=== PATIENT | male | born 1940 | race Caucasian/White ===

== ENCOUNTER 2018-05-17 20:29 | Emergency (ER) | payer OTHER ==
[~2018-05-17] VITALS: Ht 172.7 cm; Wt 113.4 kg
[~2018-05-17 20:29] MED LIST: LISI10TA11 PO; LOVA20TA2 PO; METF500T PO; MIC5 PO; TAMS0.4C96 PO; TRAM50TA1 PO; VIC PO
[2018-05-17 20:33] VITALS: BP 118/57
--- NOTE | 2018-05-17 20:42 | NUR ---
PT AMBULATED TO BED 11 WITH VSS. ACCOMPANIED BY AND DAUGHTER.
[2018-05-17] MEDS ORDERED: NACL 0.9% 500 ML IV SCH (20:45)
[2018-05-17] MEDS ORDERED: NACL 0.9% 500 ML IV ONE (20:45)
--- NOTE | 2018-05-17 20:48 | NUR ---
TO ER BED 11
--- NOTE | 2018-05-17 20:50 | NUR ---
77/M CAME IN WITH FAMILY, C/O DIZZINESS AND WEAKNESS AFTER BLOOD DRAW THIS MORNING. PT STATED THAT HE WENT HOME, LAID DOWN AND STARTED FEELING SYMPTOMS. PT REPORTS SUBJECTIVE FEVER, PT TOOK ADVIL 12 HRS AGO. PT REPORTS INTERMITTENT HEADACHE, BODY ACHES AND LOWER BACK PAIN, DENIES PAIN AT THIS TIME. PT DENIES CHEST PAIN, SOB, N/V/D, DYSURIA. AOX4, GCS 15. LUNG SOUNDS CLEAR BL. ABD SOFT ROUND NONTENDER. BLE EDEMA PITTING +1 NOTED, NOTED SLIGHT LLE DEFORMITY SINCE 30 YEARS AGO PER PT. HX HTN, DM. ER MD MADE AWARE.
[2018-05-17 21:09] LABS: APPEARANCE,URINE CLEAR (CLEAR); BILIRUBIN,URINE NEGATIVE (NEGATIVE); BLOOD, URINE TRACE-I (NEGATIVE); COLOR,URINE YELLOW (YELLOW); LEUKOCYTE ESTERASE ,URINE TRACE (NEGATIVE); NITRITE, URINE NEGATIVE (NEGATIVE); PH,URINE 7.5 (5.0-9.0); UGLUCOSE NEGATIVE (NEGATIVE)
[2018-05-17 21:14] LABS: BASOPHILS % (AUTO) 0.2 % (0.0-2.0); EOSINOPHILS % (AUTO) 0.1 % (0.0-4.0); HEMATOCRIT 37.4 % (36-52); HEMOGLOBIN 12.4 g/dL (12.0-18.0); LYMPHOCYTES # (AUTO) 0.5 K/uL (2.0-11.5); MEAN CORPUSCULAR HEMOGLOBIN 31 pg (27-31); MEAN CORPUSCULAR HGB CONC 33 g/dL (33-37); MEAN CORPUSCULAR VOLUME 94.2 fL (80-94); MONOCYTES # (AUTO) 0.8 K/uL (0.8-1.0); MONOCYTES % (AUTO) 3.9 % (1.7-9.3); NEUTROPHILS # (AUTO) 18.7 K/uL (1.8-7.7); NEUTROPHILS % (AUTO) 93.3 % (42.2-75.2); PLATELET COUNT (AUTO) 132 K/uL (140-450); RED BLOOD CELL COUNT(AUTO) 3.97 MIL/uL (4.20-6.10); RED CELL DISTRIBUTION WIDTH 13.3 % (11.6-13.7)
[2018-05-17 21:20] LABS: ANION GAP 11.7 (8-16); CARBON DIOXIDE 26.4 mmol/L (21-32); CHLORIDE 100 mmol/L (98-107); CREATININE 1.1 mg/dL (0.7-1.3); GLUCOSE 158 mg/dL (74-106); POTASSIUM 4.1 mmol/L (3.5-5.1); SODIUM SERUM 134 mmol/L (136-145); UREA NITROGEN, BLOOD 16 mg/dL (7-18)
[2018-05-17 21:26] LABS: LYMPHOCYTES % (AUTO) 2.5 % (20.5-51.1)
[2018-05-17 21:27] LABS: ALBUMIN 3.6 g/dL (3.4-5.0); ASPARTATE AMINOTRANSFERASE 16 U/L (15-37); TOTAL BILIRUBIN 1.5 mg/dL (0.0-1.0)
[2018-05-17 21:27] LABS: RBC,URINE 0-5 (RARE) /HPF (0-5); WBC,URINE 0-5 (RARE) /HPF (0-5)
[2018-05-17 21:28] LABS: PROTHROMBIN TIME 10.5 secs (10.8-13.4)
[2018-05-17] MEDS ORDERED: ACETAMINOPHEN 325 MG TAB PO ONE (22:00)
--- NOTE | 2018-05-17 22:00 | NUR ---
PT RESTING IN BED, REPORTS 3/10 L SHOULDER PAIN, BODYACHES AND CHILLS. TEMP 100.4 ORAL AT THIS TIME. COOLING MEASURES ENSURED. TYLENOL PO ADMINISTERED PER VERBAL ORDER. ALL NEEDS MET AT THIS TIME.
[2018-05-17] MEDS ORDERED: NACL 0.9% IV ONE (22:30)
[2018-05-17] MEDS ORDERED: PIPERACILLIN/TAZOBACTAM 3.375 GM in DEXTROSE 5% 50 ML IV ONE (22:30)
[2018-05-17] MEDS ORDERED: PIPERACILLIN/TAZOBACTAM 3.375 GM VIAL IV ONE (22:53)
--- NOTE | 2018-05-17 23:30 | NUR ---
PT RESTING COMFORTABLY, VSS, TEMP 99.5 AT THIS TIME. ALL NEEDS MET.
--- NOTE | 2018-05-18 00:40 | NUR ---
PT RESTING COMFORTABLY, VSS, TEMP 99.8 AT THIS TIME, COOLING MEASURES ENSURED. ALL NEEDS MET.
--- NOTE | 2018-05-18 02:59 | NUR ---
PT SITTING COMFORTABLY IN BED, RR EVEN AND UNLABORED, VSS. PER UNION LABORER, AWAITING BED PLACEMENT CALL BACK FROM [facility].
--- NOTE | 2018-05-18 03:19 | NUR ---
Patient to be transferred to [facility]. Is being transferred due to LEUKOCYTOSIS, SEPSIS, FEVER. Receiving facility has accepting physician DR. MOFFETT and available space. ER physician has signed transfer form. Patient or responsible democrat has agreed to transfer and signed form. Patient belongings inventoried and will be sent with patient. Copy of nursing notes, lab reports, EKG, Physicians Orders and X-rays to be sent with patient. Report called to NATALYA ONTIVEROS at receiving facility. [facility], [facility] ambulance service has been called for transfer. ETA is 45MINS TO 1HR.
[2018-05-18 04:27] VITALS: BP 107/41
--- NOTE | 2018-05-18 04:27 | NUR ---
PT PICKED UP BY [facility]ORT AT THIS TIME, VSS, CONDITION STABLE. ALL BELONGINGS AND PAPERWORK SENT WITH PT.
--- NOTE | 2018-05-20 13:17 | NUR ---
PATIENT WAS TRANSFERED OUT TO [facility] NO FOLLOW UP INDICATED
== END 2018-05-18 04:27 | disposition short-term general hospital (02) ==
LOC: MED 20:29
DX: A41.9 Sepsis, unspecified organism (principal); D72.829 Elevated white blood cell count, unspecified; E11.9 Type 2 diabetes mellitus without complications; I10 Essential (primary) hypertension; Z79.899 Other long term (current) drug therapy
CPT/HCPCS: 36415; 71045; 80053; 81001; 83605; 83880; 84484; 85025; 85610; 85730; 87040; 87086; 87186; 93005; 96361; 96365; 99285; J2543; J7030

== ENCOUNTER 2019-11-11 08:58 | Emergency (ER) | payer OTHER ==
[~2019-11-11] VITALS: Ht 172.7 cm; Wt 113.4 kg
[2019-11-11 09:00] VITALS: BP 155/79
--- NOTE | 2019-11-11 09:00 | NUR ---
TO BED # 02 AMBULATORY
[2019-11-11] MEDS ORDERED: KETOROLAC 60 MG/2 ML VIAL IM ONE (09:50)
--- NOTE | 2019-11-11 09:50 | NUR ---
DONE THE EXAM BEDSIDE.
--- NOTE | 2019-11-11 09:55 | NUR ---
TORADOL GIVEN IM. XRAY IS BEDSIDE
[2019-11-11 12:31] VITALS: BP 154/75
--- NOTE | 2019-11-11 12:32 | NUR ---
Patient discharged with v/s stable. Written and verbal after care instructions given and explained. Patient alert, oriented and verbalized understanding of instructions. with to car. All questions addressed prior to discharge. ID band removed. Patient advised to follow up with PMD. Rx of given. Patient educated on indication of medication including possible reaction and side effects. Opportunity to ask questions provided and answered.
== END 2019-11-11 12:32 | disposition home or self-care (01) ==
LOC: MED 08:58
DX: M54.42 Lumbago with sciatica, left side (principal); E11.9 Type 2 diabetes mellitus without complications; I10 Essential (primary) hypertension; Z79.84 Long term (current) use of oral hypoglycemic drugs; Z79.899 Other long term (current) drug therapy
CPT/HCPCS: 72131; 73610; 93971; 96372; 99285; J1885; Q0092

== ENCOUNTER 2021-02-06 10:40 | Emergency (ER) | payer OTHER ==
[~2021-02-06] VITALS: Ht 172.7 cm; Wt 113.4 kg
[~2021-02-06 10:40] MED LIST changes: +GLYB-200 PO; +LISI-486 PO; -LISI10TA11 PO; -MIC5 PO
[2021-02-06 10:48] VITALS: BP 183/88
--- NOTE | 2021-02-06 10:53 | NUR ---
Pt ambulated to ER bed 6 with a steady gait.
--- NOTE | 2021-02-06 10:56 | NUR ---
RN at pt bedside for evaluation.
--- NOTE | 2021-02-06 11:05 | NUR ---
80 Y/O M BIB SELF FROM HOME, PATIENT PRESENTS TO ED WITH HEADACHE AND HEAD PAIN FROM MECHANICAL FALL ON 02/04/21. PT STATES HE FEEL BACKWARDS, DENIES ANY LOC OR BLEEDING. DENIES N/V/D; SKIN IS PINK/WARM/DRY, NO SWELLING, REDNESS OR ABRASIONS ON POSTERIOR HEAD; AAOX4 WITH EVEN AND STEADY GAIT WITH CANE ON L SIDE; LUNGS CLEAR BL; HR EVEN AND REGULAR; PT DENIES ANY FEVER, CP, SOB, OR COUGH AT THIS TIME; PATIENT STATES PAIN OF 2/10 AT THIS TIME; VSS; PATIENT POSITIONED FOR COMFORT; HOB ELEVATED; BEDRAILS UP X2; BED DOWN. ER MD MADE AWARE OF PT STATUS. PMH: DIABETES NKA MED: ADVIL (2 TAB PO THIS AM)
--- NOTE | 2021-02-06 11:08 | NUR ---
Dr. Salcido at pt bedside for further evaluation.
[2021-02-06] MEDS ORDERED: ACETAMINOPHEN EXTRA STRENGTH 500 MG TAB PO ONE (11:20)
--- NOTE | 2021-02-06 11:21 | NUR ---
technician assistant at pt bedside.
--- NOTE | 2021-02-06 12:39 | NUR ---
Gave report to NATALYA Mendez at [facility].
--- NOTE | 2021-02-06 13:05 | NUR ---
[facility] at bedside to transport the patient to [facility] ER.
[2021-02-06 13:13] VITALS: BP 155/73
--- NOTE | 2021-02-06 13:17 | NUR ---
CONTACTED DAUGHTER SNEHA ROSARIO, INFORMED HER THAT HE IS TRANSFERRED TO [facility] FOR MRI AND HIGHER LEVEL OF CARE.
== END 2021-02-06 13:05 | disposition short-term general hospital (02) ==
LOC: MED 10:40
DX: S00.93XA Contusion of unspecified part of head, initial encounter (principal); E11.9 Type 2 diabetes mellitus without complications; I10 Essential (primary) hypertension; Z79.899 Other long term (current) drug therapy; W22.8XXA Striking against or struck by other objects, initial encounter; Y93.89 Activity, other specified; Y92.89 Other specified places as the place of occurrence of the external cause; Y99.8 Other external cause status; Z20.822 Contact with and (suspected) exposure to COVID-19
CPT/HCPCS: 70450; 73590; 99291

== ENCOUNTER 2021-06-04 14:10 | Observation (INO) | payer OTHER, SELFPAY ==
[~2021-06-04] VITALS: Ht 172.7 cm; Wt 108.9 kg
[2021-06-04 14:45] VITALS: BP 86/43
--- NOTE | 2021-06-04 15:02 | NUR ---
DR. BRIGHT BEDSIDE EVALUATING PT
--- NOTE | 2021-06-04 15:26 | NUR ---
LAB BEDSIDE OBTAINING BLOOD WORK
--- NOTE | 2021-06-04 15:36 | NUR ---
80 Y MALE WITH C/O SOB AND LIGHTHEADNESS. PT STATED HE STARTED TO FEEL LIKE HE COULDNT CATCH HIS BREATH FOR ABOUT 2 MINUTES AND STARTED TO FEEL LIGHTHEADED. DENIES ANY CHEST PAIN AT THIS TIME. UPON ASSESSMENT BREATH SOUNDS CLEAR BILATERALLY. PT ON RA AND SATING 97% HX-DM, HIGH CHOL NKA
[2021-06-04 15:55] LABS: BASOPHILS # (AUTO) 0.1 K/uL (0.00-0.22); BASOPHILS % (AUTO) 0.7 % (0.0-2.0); EOSINOPHILS # (AUTO) 0.3 K/uL (0-0.4); HEMATOCRIT 34.3 % (36-52); HEMOGLOBIN 11.6 g/dL (12.0-18.0); LYMPHOCYTES # (AUTO) 1.3 K/uL (2.0-11.5); LYMPHOCYTES % (AUTO) 15.1 % (20.5-51.1); MEAN CORPUSCULAR HEMOGLOBIN 32 pg (27-31); MEAN CORPUSCULAR HGB CONC 34 g/dL (33-37); MEAN CORPUSCULAR VOLUME 94.3 fL (80-94); MONOCYTES # (AUTO) 0.6 K/uL (0.8-1.0); MONOCYTES % (AUTO) 7.1 % (1.7-9.3); NEUTROPHILS # (AUTO) 6.4 K/uL (1.8-7.7); NEUTROPHILS % (AUTO) 74.1 % (42.2-75.2); PLATELET COUNT (AUTO) 151 K/uL (140-450); RED BLOOD CELL COUNT(AUTO) 3.63 MIL/uL (4.20-6.10); RED CELL DISTRIBUTION WIDTH 13.9 % (11.6-13.7); WHITE BLOOD COUNT (AUTO) 8.7 K/uL (4.8-10.8)
[2021-06-04] MEDS ORDERED: NACL 0.9% 1,000 ML IV ONE (17:05)
--- NOTE | 2021-06-04 17:15 | NUR ---
PT AMBULATED TO RESTROOM. GAIT STEADY
--- NOTE | 2021-06-04 18:27 | NUR ---
SPOKE WITH PT IN REGARDS TO HOME MEDICATIONS. PT CALLED HIS AND IS GOING TO HAVE HIS BRING HIS MEDICATIONS TO BE ENTERED INTO THE SYSTEM
[2021-06-04] MEDS ORDERED: DEXTROSE 50% 50 ML SYR IVP PRN (18:40)
[2021-06-04] MEDS ORDERED: ACETAMINOPHEN 325 MG TAB PO PRN (18:40)
[2021-06-04] MEDS ORDERED: ONDANSETRON 4 MG/2 ML VIAL IVP PRN (18:40)
[2021-06-04] MEDS ORDERED: ALBUTEROL 0.083% 2.5 MG/3 ML NEBU INH PRN (18:40)
[2021-06-04] MEDS ORDERED: traMADol 50 MG TAB PO PRN (18:45)
[2021-06-04 18:48] LABS: ALBUMIN 3.5 g/dL (3.4-5.0); ANION GAP 18.6 (8-16); ASPARTATE AMINOTRANSFERASE 17 U/L (15-37); CARBON DIOXIDE 24.5 mmol/L (21-32); CHLORIDE 104 mmol/L (98-107); CREATININE 1.3 mg/dL (0.6-1.3); GLUCOSE 96 mg/dL (74-106); POTASSIUM 4.1 mmol/L (3.5-5.1); SODIUM SERUM 143 mmol/L (136-145); TOTAL BILIRUBIN 0.8 mg/dL (0.0-1.0); UREA NITROGEN, BLOOD 28 mg/dL (7-18)
[2021-06-04] MEDS ORDERED: FUROSEMIDE 20 MG/2 ML VIAL IVP SCH (19:00)
[2021-06-04] MEDS ORDERED: CILO100T PO (19:05)
[2021-06-04] MEDS ORDERED: POTA10TE30 PO (19:05)
[2021-06-04] MEDS ORDERED: GLIP10TE PO (19:05)
[2021-06-04] MEDS ORDERED: FURO-570 PO (19:05)
[2021-06-04] MEDS ORDERED: OMEP40EC24 PO (19:05)
[2021-06-04] MEDS ORDERED: MIRA25TE PO (19:05)
[2021-06-04 19:10] LABS: CREATINE KINASE MB 1.3 ng/mL (0-3.6)
--- NOTE | 2021-06-04 19:40 | NUR ---
US AT BEDSIDE.
[2021-06-04] MEDS: BLOOD GLUCOSE MONITORING 1 DEV DEV FS SCH (21:15)
--- NOTE | 2021-06-04 21:15 | NUR ---
LAB AT BEDSIDE
--- NOTE | 2021-06-05 06:28 | NUR ---
PT SLEPT FROM 0000 UNTIL NOW. PT GOT UP FREQUENTLY TO USE THE RR, AMBULATED WITH STEADY GAIT AND BACK TO BED OR WOULD SIT IN CHAIR. PT REMAINED IN STABLE CONDITION. BED LOCKED IN LOWEST POISITION, SIDE RAILS X1.
[2021-06-05 06:48] LABS: BASOPHILS # (AUTO) 0.1 K/uL (0.00-0.22); BASOPHILS % (AUTO) 0.8 % (0.0-2.0); EOSINOPHILS # (AUTO) 0.3 K/uL (0-0.4); EOSINOPHILS % (AUTO) 4.4 % (0.0-4.0); HEMATOCRIT 36.6 % (36-52); HEMOGLOBIN 12.2 g/dL (12.0-18.0); LYMPHOCYTES # (AUTO) 1.6 K/uL (2.0-11.5); LYMPHOCYTES % (AUTO) 21.4 % (20.5-51.1); MEAN CORPUSCULAR HEMOGLOBIN 32 pg (27-31); MEAN CORPUSCULAR HGB CONC 34 g/dL (33-37); MEAN CORPUSCULAR VOLUME 95.8 fL (80-94); MONOCYTES # (AUTO) 0.7 K/uL (0.8-1.0); MONOCYTES % (AUTO) 8.8 % (1.7-9.3); NEUTROPHILS # (AUTO) 4.8 K/uL (1.8-7.7); NEUTROPHILS % (AUTO) 64.6 % (42.2-75.2); PLATELET COUNT (AUTO) 162 K/uL (140-450); RED BLOOD CELL COUNT(AUTO) 3.82 MIL/uL (4.20-6.10); RED CELL DISTRIBUTION WIDTH 13.8 % (11.6-13.7); WHITE BLOOD COUNT (AUTO) 7.4 K/uL (4.8-10.8)
--- NOTE | 2021-06-05 07:30 | NUR ---
REPORT GIVEN TO NATALYA DUARTE. TRANSFER OF CARE AT THIS TIME.
[2021-06-05] MEDS: BLOOD GLUCOSE MONITORING 1 DEV DEV FS SCH ×4 (07:41→20:40)
[2021-06-05] MEDS: TAMSULOSIN 0.4 MG CAP PO SCH (08:27)
[2021-06-05] MEDS: ASPIRIN 81 MG TAB.CHEW PO SCH (08:27)
[2021-06-05] MEDS: ENOXAPARIN 40 MG/0.4 ML SYR SUBQ SCH (08:28)
--- NOTE | 2021-06-05 08:58 | NUR ---
Patient will be admitted to care of DR. RICHARDS. Admited to TELE. Will go to room 111A. Belongings list completed. Report to NATALYA WADSWORTH.
[2021-06-05 09:30] VITALS: BP 141/72
--- NOTE | 2021-06-05 09:30 | NUR ---
PT ARRIVED TO UNIT VIA GURNEY. PT AMBULATED TO THE BED. GAIT WAS STEADY. AWAKE AND ALERT, A&OX4. ON 2L O2 NC WITH BREATHING UNLABORED. O2 SAT IS 99%. ON TELE MONITORING, SR. SWELLING ON THE LEFT LOWER EXTREMITY NOTED. SKIN IS WARM, DRY, AND INTACT. IV IS IN THE RIGHT FOREARM 22 GAUGE SALINE LOCKED. PT IS STABLE. PLAN OF CARE DISCUSSED WITH ER NURSE.
--- NOTE | 2021-06-05 09:30 | NUR ---
UPON ADMISSION PT HAD 856 DOLLARS IN WALLET. PT STATED HE WANTED TO KEEP IT ON HIM AND NOT PLACE IN SAFE. PT KEPT WALLET IN PANTS.
--- NOTE | 2021-06-05 11:30 | NUR ---
PT'S BS READING IS 147. NO INSULIN COVERAGE NEEDED PER SLIDING SCALE.
[2021-06-05 12:00] VITALS: BP 138/64
--- NOTE | 2021-06-05 12:00 | NUR ---
IS AT BEDSIDE VISITING PT. NO DISTRESS NOTED AT THIS TIME. PT IS SITTING UP AT CHAIR. BELONGINGS ARE WITHIN REACH.
--- NOTE | 2021-06-05 13:23 | NUR ---
PT WAS PLACED ON RA. O2 SAT WAS MONITORED AND O2 SAT HAS BEEN STABLE, 96%. O2 NC WITH 2L NO LONGER NEEDED. BREATHING IS UNLABORED.
--- NOTE | 2021-06-05 13:27 | NUR ---
MEDICATIONS DROPPED OFF AT PHARMACY FROM HOME; LOVASTATIN AND MIRAREGRON. PT AGREED TO THIS AND PROVIDED MEDICATION.
[2021-06-05 13:50] LABS: ALBUMIN 3.7 g/dL (3.4-5.0); ANION GAP 19.4 (8-16); ASPARTATE AMINOTRANSFERASE 20 U/L (15-37); CARBON DIOXIDE 24.5 mmol/L (21-32); CHLORIDE 105 mmol/L (98-107); CREATININE 1.1 mg/dL (0.6-1.3); GLUCOSE 75 mg/dL (74-106); MAGNESIUM 1.3 mg/dL (1.8-2.4); POTASSIUM 3.9 mmol/L (3.5-5.1); SODIUM SERUM 145 mmol/L (136-145); TOTAL BILIRUBIN 0.9 mg/dL (0.0-1.0); UREA NITROGEN, BLOOD 26 mg/dL (7-18)
--- NOTE | 2021-06-05 15:41 | NUR ---
PT IS STABLE. PT IS SITTING UP IN BED, WATCHING TV. NO RESPIRATORY DISTRESS NOTED. PT DENIES SOB. WILL CONTINUE TO MONITOR.
[2021-06-05 16:00] VITALS: BP 117/72
--- NOTE | 2021-06-05 16:57 | NUR ---
PATIENT HAS BEEN SCREENED AND CATEGORIZED LOW NUTRITION RISK. PATIENT WILL BE SEEN WITHIN 7 DAYS OF ADMISSION. 06/11/[address]
--- NOTE | 2021-06-05 17:45 | NUR ---
BS READING IS 132. NO INSULIN COVERAGE NEEDED PER SLIDING SCALE.
--- NOTE | 2021-06-05 17:55 | NUR ---
PT IS SITTING UP IN BED WATCHING TV. PT DENIES SOB OR CHEST PAIN. ON RA WITH BREATHING UNLABORED. PT AMBULATED TO THE RESTROOM INDEPENDENTLY. PT IS STABLE AT THIS TIME.
--- NOTE | 2021-06-05 19:15 | NUR ---
ENDORSED PT TO PROGRAM THERAPIST NURSE FOR CONTINUITY OF CARE. PT IS STABLE AT THIS TIME. PLAN OF CARE DISCUSSED.
--- NOTE | 2021-06-05 19:34 | NUR ---
RECEIVED REPORT FROM DAYSPAFT NURSE FOR CONTINUITY OF CARE.
[2021-06-05 19:51] LABS: CREATINE KINASE MB 1.3 ng/mL (0-3.6)
[2021-06-05 20:00] VITALS: BP 118/70
[2021-06-05] MEDS: INSULIN LISPRO SLIDING SCALE 100 UNITS/ML VIAL SUBQ PRN (20:38)
--- NOTE | 2021-06-05 20:41 | NUR ---
SCHEDULED BS CHECKED, IT WAS 157. GAVE 2 UNITS OF INSULIN FOR COVERAGE.
[2021-06-06] VITALS: BP 125/67
--- NOTE | 2021-06-06 | NUR ---
PATIENT ASLEEP, ON ROOM AIR, NO SIGNS OF DISTRESS. SAFETY MEASURES IMPLEMENTED. CALL LIGHT WITHIN REACH.
[2021-06-06 04:00] VITALS: BP 131/79
[2021-06-06] MEDS: BLOOD GLUCOSE MONITORING 1 DEV DEV FS SCH ×2 (06:56→11:37)
--- NOTE | 2021-06-06 06:57 | NUR ---
CHECKED SCHEDULED BS, IT WAS 114. NO INSULIN COVERAGE GIVEN
--- NOTE | 2021-06-06 07:23 | NUR ---
ENDORSE PT TO DAYSHIFT NURSE FOR CONTINUITY OF CARE.
--- NOTE | 2021-06-06 07:25 | NUR ---
Received report from night time nanny RN. Patient awake and alert sitting on chair on side of bed. Will continue to monitor patient.
[2021-06-06 07:27] LABS: BASOPHILS % (AUTO) 0.6 % (0.0-2.0); EOSINOPHILS # (AUTO) 0.4 K/uL (0-0.4); EOSINOPHILS % (AUTO) 5.2 % (0.0-4.0); HEMATOCRIT 35.9 % (36-52); HEMOGLOBIN 12.3 g/dL (12.0-18.0); LYMPHOCYTES # (AUTO) 1.4 K/uL (2.0-11.5); MEAN CORPUSCULAR HEMOGLOBIN 32 pg (27-31); MEAN CORPUSCULAR HGB CONC 34 g/dL (33-37); MEAN CORPUSCULAR VOLUME 94.3 fL (80-94); MONOCYTES # (AUTO) 0.6 K/uL (0.8-1.0); NEUTROPHILS # (AUTO) 4.5 K/uL (1.8-7.7); NEUTROPHILS % (AUTO) 65.2 % (42.2-75.2); PLATELET COUNT (AUTO) 158 K/uL (140-450); RED CELL DISTRIBUTION WIDTH 13.8 % (11.6-13.7); WHITE BLOOD COUNT (AUTO) 6.9 K/uL (4.8-10.8)
[2021-06-06 07:46] LABS: ANION GAP 12.3 (8-16); CARBON DIOXIDE 30.8 mmol/L (21-32); CHLORIDE 103 mmol/L (98-107); CREATININE 0.9 mg/dL (0.6-1.3); GLUCOSE 129 mg/dL (74-106); POTASSIUM 4.1 mmol/L (3.5-5.1); SODIUM SERUM 142 mmol/L (136-145); UREA NITROGEN, BLOOD 19 mg/dL (7-18)
[2021-06-06] MEDS ORDERED: MAGNESIUM OXIDE 400 MG TAB PO ONE (08:40)
[2021-06-06] MEDS ORDERED: MYBETRIQ 50 MG PO SCH (09:00)
[2021-06-06] MEDS ORDERED: NON-FORMULARY ITEM (Omeprazole* (Prilosec*) 40 MG) PO SCH (09:00)
[2021-06-06] MEDS ORDERED: cilostazoL 100 MG TAB PO SCH (09:00)
[2021-06-06] MEDS ORDERED: NON-FORMULARY ITEM (Mirabegron (Myrbetriq) 1 TAB) PO SCH (09:00)
[2021-06-06] MEDS ORDERED: lisinopriL 10 MG TAB PO SCH (09:00)
[2021-06-06] MEDS ORDERED: FUROSEMIDE 40 MG TAB PO SCH (09:00)
[2021-06-06] MEDS ORDERED: TAMSULOSIN 0.4 MG CAP PO SCH (09:00)
[2021-06-06] MEDS ORDERED: LOVASTATIN 20 MG PO SCH ×2 (09:00)
[2021-06-06] MEDS ORDERED: PANTOPRAZOLE 40 MG TABEC PO SCH (09:00)
[2021-06-06] MEDS: ASPIRIN 81 MG TAB.CHEW PO SCH (09:22)
[2021-06-06] MEDS: TAMSULOSIN 0.4 MG CAP PO SCH (09:23)
[2021-06-06] MEDS: ENOXAPARIN 40 MG/0.4 ML SYR SUBQ SCH (09:26)
[2021-06-06] MEDS: INSULIN LISPRO SLIDING SCALE 100 UNITS/ML VIAL SUBQ PRN (11:53)
--- NOTE | 2021-06-06 13:00 | NUR ---
Discharge instructions and education given to patient. Patient verbalized understanding. Patient verbalized understanding about medications, follow up with doctors. Patient informed family, they are coming to pick him up and bring him clothing. IV removed, IV cannula intact, minimal bleeding noted. ID bands cut. Will continue to monitor patient.
--- NOTE | 2021-06-06 13:30 | NUR ---
Patient wheeled off floor to go home. came with shirt for him to change into. Patient took all his belongings with him, in stable condition.
== END 2021-06-06 13:30 | disposition home or self-care (01) ==
LOC: MED 14:10 → MTU 18:42
PROVIDERS: ADMIT Internal Medicine; ATTEND Internal Medicine
DX: R06.00 Dyspnea, unspecified (principal); Z20.822 Contact with and (suspected) exposure to COVID-19; I11.0 Hypertensive heart disease with heart failure; I50.30 Unspecified diastolic (congestive) heart failure; E11.51 Type 2 diabetes mellitus with diabetic peripheral angiopathy without gangrene; E78.5 Hyperlipidemia, unspecified; N40.0 Benign prostatic hyperplasia without lower urinary tract symptoms; Z79.84 Long term (current) use of oral hypoglycemic drugs; Z79.899 Other long term (current) drug therapy
CPT/HCPCS: 36415; 71045; 80048; 80053; 82550; 82553; 82948; 83605; 83735; 83880; 84484; 85025; 85379; 87040; 87081; 87426; 93307; 93970; 96361; 96372; 96374; 99285; G0378; J1650; J1815; J1940; 93005; Q0092

== ENCOUNTER 2022-01-02 11:18 | Emergency (ER) | payer OTHER ==
[~2022-01-02] VITALS: Ht 172.7 cm; Wt 112.5 kg
[~2022-01-02 11:18] MED LIST changes: +CILO100T PO; +FURO-570 PO; +GLIP10TE PO; -GLYB-200 PO; +MIRA25TE PO; +OMEP40EC24 PO; +POTA10TA70 PO
[2022-01-02 11:20] VITALS: BP 197/93
--- NOTE | 2022-01-02 11:30 | NUR ---
wheelchair assisted to bed 12
[2022-01-02] MEDS ORDERED: CYCLOBENZAPRINE 10 MG TAB PO ONE (11:55)
[2022-01-02] MEDS ORDERED: CYCL-654 PO (13:43)
[2022-01-02] MEDS ORDERED: IBUP-1842 PO (13:43)
--- NOTE | 2022-01-02 13:58 | NUR ---
Patient discharged with v/s stable. Written and verbal after care instructions given and explained. Patient alert, oriented and verbalized understanding of instructions. Ambulatory with steady gait. All questions addressed prior to discharge. ID band removed. Patient advised to follow up with PMD. Rx of FLEXARYL AND IBUPROFEN given. Patient educated on indication of medication including possible reaction and side effects. Opportunity to ask questions provided and answered.
[2022-01-02 14:02] VITALS: BP 197/93
== END 2022-01-02 13:58 | disposition home or self-care (01) ==
LOC: MED 11:18
DX: M25.561 Pain in right knee (principal); G89.29 Other chronic pain; I10 Essential (primary) hypertension; Z76.0 Encounter for issue of repeat prescription; Z79.899 Other long term (current) drug therapy
CPT/HCPCS: 73562; 99283

== ENCOUNTER 2022-05-01 18:06 | Emergency (ER) | payer OTHER ==
[~2022-05-01] VITALS: Ht 172.7 cm; Wt 108.4 kg
[~2022-05-01 18:06] MED LIST changes: +CYCL-654 PO; +IBUP-1842 PO; +METF-346 PO; -METF500T PO
[2022-05-01 18:23] VITALS: BP 143/69
--- NOTE | 2022-05-01 18:30 | NUR ---
PT AMBULATED WITH CANE TO [facility]
[2022-05-01] MEDS ORDERED: SODIUM PHOSPHATE 118 ML ENEM RC ONE (18:50)
[2022-05-01] MEDS ORDERED: MAGNESIUM CITRATE 300 ML BTL PO ONE (18:50)
--- NOTE | 2022-05-01 18:57 | NUR ---
PT TRANSPORTED TO [facility] VIA
--- NOTE | 2022-05-01 19:23 | NUR ---
PT RETURN FROM XRAY
--- NOTE | 2022-05-01 20:11 | NUR ---
Patient ambulated to bed 11.
[2022-05-01] MEDS ORDERED: PEG4000P3 PO (20:35)
[2022-05-01] MEDS ORDERED: MAGNESIUM CITRATE 300 ML BTL ONE (20:59)
--- NOTE | 2022-05-01 21:18 | NUR ---
81 Y/O MALE BIB SELF C/O OF CONSTIPATION, PER PT HE HASNT HAD A BOWEL MOVEMENT IN WEEKS, ABD IS FIRM AND DISTENDED. A/OX4, UNLABORED BREATHING, AMBULATORY. NKA PMH: DM, HTN, HDL, PERIPHERAL VASCULAR DISEASE, GERD,
--- NOTE | 2022-05-01 22:32 | NUR ---
FLEET ENEMA ADMINISTERED. PT DENIES PAIN AND DISCOMFORT.
--- NOTE | 2022-05-01 22:39 | NUR ---
PT ABLE TO AMBULATE WITH WALKER TO RESTROOM. PT STATES HE FEELS RELIEF .
--- NOTE | 2022-05-01 23:33 | NUR ---
Patient discharged with v/s stable. Written and verbal after care instructions given and explained. Patient alert, oriented and verbalized understanding of instructions. Ambulatory with steady gait. All questions addressed prior to discharge. ID band removed. Patient advised to follow up with PMD. Rx of GOLYTELY SOLUTION given. Patient educated on indication of medication including possible reaction and side effects. Opportunity to ask questions provided and answered. VSS, A/OX4, AMBULATORY, UNLABORED BREATHING, AND CALM DEMEANOR.
[2022-05-01 23:34] VITALS: BP 132/68
== END 2022-05-01 23:33 | disposition home or self-care (01) ==
LOC: MED 18:06
DX: R10.9 Unspecified abdominal pain (principal); I10 Essential (primary) hypertension; E11.9 Type 2 diabetes mellitus without complications; Z79.4 Long term (current) use of insulin; Z79.899 Other long term (current) drug therapy
CPT/HCPCS: 74018; 99283

== ENCOUNTER 2022-05-08 14:27 | Emergency (ER) | payer OTHER ==
[~2022-05-08] VITALS: Ht 172.7 cm; Wt 108.0 kg
[~2022-05-08 14:27] MED LIST changes: +PEG4000P3 PO
[2022-05-08 14:37] VITALS: BP 158/68
--- NOTE | 2022-05-08 14:45 | NUR ---
81 Y/O MALE BIB SELF C/O CONSTIPATION X 1 WEEK. WAS SEEN IN THE ED ON THE 05/01/22. PER PT THAT WAS THE LAST TIME HE HAD A BOWEL MOVEMENT. NKA PMH: HTN, DM, HDL
--- NOTE | 2022-05-08 16:10 | NUR ---
DR CORNEJO AT PT SIDE FOR EVAL
[2022-05-08] MEDS ORDERED: LACT-103 PO (16:19)
[2022-05-08] MEDS ORDERED: NA P133E RC (16:38)
--- NOTE | 2022-05-08 16:40 | NUR ---
Patient discharged with v/s stable. Written and verbal after care instructions given and explained. Patient alert, oriented and verbalized understanding of instructions. Ambulatory with steady gait. All questions addressed prior to discharge. ID band removed. Patient advised to follow up with PMD. Rx of LACTULOSE AND FLEET ENEMA given. Patient educated on indication of medication including possible reaction and side effects. Opportunity to ask questions provided and answered.
== END 2022-05-08 16:40 | disposition home or self-care (01) ==
LOC: MED 14:27
DX: K59.00 Constipation, unspecified (principal); E66.9 Obesity, unspecified; E11.9 Type 2 diabetes mellitus without complications; I10 Essential (primary) hypertension; Z68.36 Body mass index [BMI] 36.0-36.9, adult; Z79.84 Long term (current) use of oral hypoglycemic drugs; Z79.899 Other long term (current) drug therapy; Z98.890 Other specified postprocedural states
CPT/HCPCS: 99283

== ENCOUNTER 2022-08-29 22:47 | Emergency (ER) | payer OTHER ==
[~2022-08-29] VITALS: Ht 172.7 cm; Wt 113.4 kg
[~2022-08-29 22:47] MED LIST changes: -CILO100T PO; +CILO100T2 PO; +LACT-103 PO; +NA P133E RC; +TRAM-748 PO; -TRAM50TA1 PO
[2022-08-29 22:50] VITALS: BP 172/80
--- NOTE | 2022-08-29 22:50 | NUR ---
TO LOBBY A/W BED AMBULATORY
[2022-08-29] MEDS ORDERED: ACETYLCYSTEINE 10% (100 MG/ML) 100 MG/ML VIAL INH STA (22:59)
[2022-08-29] MEDS ORDERED: FUROSEMIDE 40 MG/4 ML VIAL IVP ONE (23:20)
[2022-08-29 23:25] LABS: BASOPHILS # (AUTO) 0.1 K/uL (0.00-0.22); BASOPHILS % (AUTO) 0.9 % (0.0-2.0); EOSINOPHILS # (AUTO) 0.2 K/uL (0-0.4); EOSINOPHILS % (AUTO) 3.6 % (0.0-4.0); HEMOGLOBIN 11.2 g/dL (12.0-18.0); LYMPHOCYTES # (AUTO) 0.9 K/uL (2.0-11.5); LYMPHOCYTES % (AUTO) 15.4 % (20.5-51.1); MEAN CORPUSCULAR HEMOGLOBIN 33 pg (27-31); MEAN CORPUSCULAR HGB CONC 34 g/dL (33-37); MEAN CORPUSCULAR VOLUME 96.1 fL (80-94); MONOCYTES # (AUTO) 0.6 K/uL (0.8-1.0); MONOCYTES % (AUTO) 10.4 % (1.7-9.3); NEUTROPHILS # (AUTO) 4.2 K/uL (1.8-7.7); NEUTROPHILS % (AUTO) 69.7 % (42.2-75.2); PLATELET COUNT (AUTO) 138 K/uL (140-450); RED BLOOD CELL COUNT(AUTO) 3.44 MIL/uL (4.20-6.10); RED CELL DISTRIBUTION WIDTH 13.2 % (11.6-13.7); WHITE BLOOD COUNT (AUTO) 6.1 K/uL (4.8-10.8)
[2022-08-29 23:38] LABS: PROTHROMBIN TIME 9.9 secs (10.8-13.4)
[2022-08-29 23:40] LABS: ALBUMIN 3.1 g/dL (3.4-5.0); ANION GAP 9.8 (8-16); ASPARTATE AMINOTRANSFERASE 16 U/L (15-37); CHLORIDE 101 mmol/L (98-107); CREATININE 0.9 mg/dL (0.6-1.3); GLUCOSE 151 mg/dL (74-106); POTASSIUM 3.8 mmol/L (3.5-5.1); SODIUM SERUM 138 mmol/L (136-145); TOTAL BILIRUBIN 0.5 mg/dL (0.0-1.0); UREA NITROGEN, BLOOD 18 mg/dL (7-18)
[2022-08-29] MEDS ORDERED: ALBUTEROL 0.083% 2.5 MG/3 ML NEBU INH ONE (23:40)
--- NOTE | 2022-08-30 01:54 | NUR ---
Patient does not wish to proceed with medical care recommended by DR. BUSH. Patient given information related to possible complications, up to and including , which could occur as a result of leaving hospital at this time. Patient verbalizes understanding of risks involved leaving against medical advice. Patient has signed AMA form.
== END 2022-08-30 01:54 | disposition left against medical advice (07) ==
LOC: MED 22:47
DX: I50.9 Heart failure, unspecified (principal); Z20.822 Contact with and (suspected) exposure to COVID-19; E11.9 Type 2 diabetes mellitus without complications; Z79.899 Other long term (current) drug therapy; Z79.84 Long term (current) use of oral hypoglycemic drugs
CPT/HCPCS: 36415; 71045; 80053; 83880; 84484; 85025; 85610; 85730; 87426; 87804; 93005; 94640; 94760; 96374; 99285; J1940; J7613; Q0092

== ENCOUNTER 2022-11-02 11:15 | Emergency (ER) | payer OTHER ==
[~2022-11-02] VITALS: Ht 172.7 cm; Wt 110.7 kg
[2022-11-02 11:33] VITALS: BP 171/76
--- NOTE | 2022-11-02 12:05 | NUR ---
81/M PRESENTS TO ED WITH C/O BACK AND HEAD PAIN, STATES HE FELL DOWN "ABOUT 4 STEPS" AT HOME 1 HOUR SAW TAILER TO ED. STATES HE HIT HIS HEAD BUT DENIES LOC, DIZZINES OR VISION CHANGES. REPORTS TAKING 3 ADVIL FOR PAIN PRIOR TO ARRIVAL, PATIENT AMBULATORY UPON ARRIVAL WITH USE OF PERSONAL CANE.
[2022-11-02] MEDS ORDERED: LID5T TP (13:59)
[2022-11-02] MEDS ORDERED: METH-1681 PO (14:00)
[2022-11-02] MEDS ORDERED: ACETAMINOPHEN 325 MG TAB PO ONE (14:00)
--- NOTE | 2022-11-02 14:35 | NUR ---
Patient discharged with v/s stable. Written and verbal after care instructions ABOUT HEAD INJURY, ACUTE BACK PAIN, THORACIC STRAIN given and explained. Patient alert, oriented and verbalized understanding of instructions. Ambulatory with steady gait. All questions addressed prior to discharge. ID band removed. Patient advised to follow up with PMD. Rx of LIDODERM PATCH, ROBAXIN given. Patient educated on indication of medication including possible reaction and side effects. Opportunity to ask questions provided and answered.
== END 2022-11-02 14:34 | disposition home or self-care (01) ==
LOC: MED 11:15
DX: S09.90XA Unspecified injury of head, initial encounter (principal); S24.109A Unspecified injury at unspecified level of thoracic spinal cord, initial encounter; W18.30XA Fall on same level, unspecified, initial encounter; Y93.89 Activity, other specified; Y92.89 Other specified places as the place of occurrence of the external cause; Y99.8 Other external cause status
CPT/HCPCS: 70450; 72125; 72128; 93005; 99284

== ENCOUNTER 2022-12-26 19:42 | Inpatient (IN) | payer OTHER ==
[~2022-12-26] VITALS: Ht 172.7 cm; Wt 110.7 kg
[~2022-12-26 19:42] MED LIST changes: +LID5T TP; +METH-1681 PO
--- NOTE | 2022-12-26 19:55 | NUR ---
PT TAKEN TO BED 11
--- NOTE | 2022-12-26 19:56 | NUR ---
Dr. Gomez examining patient.
--- NOTE | 2022-12-26 20:02 | NUR ---
PT IS HERE BECAUSE WORSINENG CELLUTIS ON THE LEFT LEG, LOOK RED AND WARM TO TOUCH. PT IS ALERT AND ORIENTED USING WALKER. HX. DM, HTN
[2022-12-26] MEDS ORDERED: FUROSEMIDE 40 MG/4 ML VIAL IVP ONE (20:10)
[2022-12-26] MEDS ORDERED: AMPICILLIN/SULBACTAM 3 GM in NACL 0.9% 100 ML IV ONE (20:10)
[2022-12-26] MEDS ORDERED: GABA100C PO (20:14)
[2022-12-26 20:39] LABS: BASOPHILS # (AUTO) 0.1 K/uL (0.00-0.22); BASOPHILS % (AUTO) 0.8 % (0.0-2.0); EOSINOPHILS # (AUTO) 0.2 K/uL (0-0.4); EOSINOPHILS % (AUTO) 2.5 % (0.0-4.0); HEMATOCRIT 34.3 % (36-52); HEMOGLOBIN 11.8 g/dL (12.0-18.0); LYMPHOCYTES # (AUTO) 1.3 K/uL (2.0-11.5); LYMPHOCYTES % (AUTO) 17.9 % (20.5-51.1); MEAN CORPUSCULAR HEMOGLOBIN 33 pg (27-31); MEAN CORPUSCULAR HGB CONC 34 g/dL (33-37); MEAN CORPUSCULAR VOLUME 96.5 fL (80-94); MONOCYTES # (AUTO) 0.6 K/uL (0.8-1.0); MONOCYTES % (AUTO) 8.4 % (1.7-9.3); NEUTROPHILS # (AUTO) 5.2 K/uL (1.8-7.7); NEUTROPHILS % (AUTO) 70.4 % (42.2-75.2); PLATELET COUNT (AUTO) 170 K/uL (140-450); RED BLOOD CELL COUNT(AUTO) 3.55 MIL/uL (4.20-6.10); WHITE BLOOD COUNT (AUTO) 7.3 K/uL (4.8-10.8)
--- NOTE | 2022-12-26 20:45 | NUR ---
pt went to rest room
[2022-12-26] MEDS ORDERED: AMPICILLIN/SULBACTAM 3 GM VIAL ONE (20:52)
[2022-12-26 20:54] LABS: ALBUMIN 3.4 g/dL (3.4-5.0); ANION GAP 12.7 (8-16); ASPARTATE AMINOTRANSFERASE 15 U/L (15-37); CARBON DIOXIDE 34.5 mmol/L (21-32); CHLORIDE 103 mmol/L (98-107); CREATININE 1.5 mg/dL (0.6-1.3); GLUCOSE 129 mg/dL (74-106); POTASSIUM 4.2 mmol/L (3.5-5.1); SODIUM SERUM 146 mmol/L (136-145); TOTAL BILIRUBIN 0.6 mg/dL (0.0-1.0); UREA NITROGEN, BLOOD 27 mg/dL (7-18)
[2022-12-26 21:07] LABS: APPEARANCE,URINE CLEAR (CLEAR); BILIRUBIN,URINE NEGATIVE (NEGATIVE); BLOOD, URINE NEGATIVE (NEGATIVE); COLOR,URINE YELLOW (YELLOW); LEUKOCYTE ESTERASE ,URINE NEGATIVE (NEGATIVE); NITRITE, URINE NEGATIVE (NEGATIVE); UGLUCOSE NEGATIVE (NEGATIVE)
--- NOTE | 2022-12-26 21:15 | NUR ---
Note kate in ED - 12/26/22 at 2201 by [email or web address] PT IS FROM HOME, LEG PAIN LEFT 05/05. LAST DIALYSIS TUESDAY. DIALYSY DONE ESRD. HTN TTS
[2022-12-27] MEDS ORDERED: INSULIN LISPRO SLIDING SCALE 100 UNITS/ML VIAL SUBQ PRN (04:20)
[2022-12-27] MEDS ORDERED: HYDROcodone/APAP 5/325 MG 1 TAB TAB PO PRN (04:20)
[2022-12-27] MEDS ORDERED: ACETAMINOPHEN 325 MG TAB PO PRN (04:20)
[2022-12-27] MEDS ORDERED: ZOLPIDEM 5 MG TAB PO PRN (04:20)
[2022-12-27] MEDS ORDERED: MORPHINE SULFATE 4 MG/ML SYR IVP PRN (04:20)
[2022-12-27] MEDS ORDERED: DEXTROSE 50% 50 ML SYR IVP PRN (04:20)
[2022-12-27] MEDS ORDERED: LORazepam 1 MG TAB PO PRN (04:20)
[2022-12-27] MEDS ORDERED: ONDANSETRON 4 MG/2 ML VIAL IVP PRN (04:20)
[2022-12-27] MEDS ORDERED: VANCOMYCIN PER PHARMACY MC PRN (04:20)
[2022-12-27] MEDS ORDERED: cefTRIAXone 2,000 MG VIAL ONE (05:46)
[2022-12-27] MEDS ORDERED: VANCOMYCIN 1GM/DEXT 5% PREMIX 200 ML IV SCH (06:00)
[2022-12-27] MEDS: BLOOD GLUCOSE MONITORING 1 DEV DEV FS SCH ×2 (07:30→12:14)
--- NOTE | 2022-12-27 08:04 | NUR ---
Admission of 82 year old male under the care of Doctor Georges for cellulitis and congestive heart failure.
--- NOTE | 2022-12-27 08:11 | NUR ---
Patient will be admitted to care of DR CLIFFORD. Admited to TELEMETRY. Will go to room 126B. Belongings list completed. Report to
[2022-12-27 08:34] VITALS: BP 165/88
[2022-12-27] MEDS ORDERED: CEPH500C16 PO (08:51)
[2022-12-27] MEDS ORDERED: DOCUSATE SODIUM 100 MG GELCAP PO SCH (09:00)
[2022-12-27] MEDS ORDERED: FUROSEMIDE 40 MG/4 ML VIAL IVP SCH (09:00)
[2022-12-27] MEDS ORDERED: VANCOMYCIN 1,000 MG in DEXTROSE 5% 250 ML IV SCH (10:00)
--- NOTE | 2022-12-27 10:20 | NUR ---
PATIENT HAS BEEN SCREENED AND CATEGORIZED MODERATE NUTRITION RISK. PATIENT WILL BE SEEN WITHIN 3-5 DAYS OF ADMISSION. REVIEWED BY SUMA BAXTER RD
[2022-12-27 12:00] VITALS: BP 150/81
[2022-12-27 13:42] LABS: ANION GAP 13.1 (8-16); CARBON DIOXIDE 34.1 mmol/L (21-32); CHLORIDE 100 mmol/L (98-107); GLUCOSE 115 mg/dL (74-106); POTASSIUM 4.2 mmol/L (3.5-5.1); SODIUM SERUM 143 mmol/L (136-145); UREA NITROGEN, BLOOD 27 mg/dL (7-18)
--- NOTE | 2022-12-27 14:53 | NUR ---
PATIENT DISCHARGE WITH A COPY OF INSTRUCTIONS AND ALL BELONGINGS. INTACT 20 GAUGE CATHETER TIP UPON REMOVAL OF NOTE. IDENTIFICATION BRACELET REMOVAL. RETURN OF TELEMETRY TO MONITOR.
[2022-12-28] MEDS ORDERED: cefTRIAXone 2,000 MG in DEXTROSE 5% 100 ML IV SCH (06:00)
== END 2022-12-27 14:50 | disposition home or self-care (01) | DRG 871 ==
LOC: MED 19:42 → MTU 12-27 04:32 → MMU 12-27 05:36
PROVIDERS: ADMIT Student in an Organized Health Care Education/Training Program; ATTEND Student in an Organized Health Care Education/Training Program
DX: A41.9 Sepsis, unspecified organism (principal); I50.21 Acute systolic (congestive) heart failure; L03.116 Cellulitis of left lower limb; N17.9 Acute kidney failure, unspecified; E11.9 Type 2 diabetes mellitus without complications; Z20.822 Contact with and (suspected) exposure to COVID-19; E78.5 Hyperlipidemia, unspecified; I11.0 Hypertensive heart disease with heart failure; E87.70 Fluid overload, unspecified; E66.9 Obesity, unspecified; Z68.37 Body mass index [BMI] 37.0-37.9, adult; Z79.899 Other long term (current) drug therapy
CPT/HCPCS: 36415; 71045; 76770; 80048; 80053; 81003; 82948; 83605; 83880; 84300; 85025; 87040; 87081; 87086; 93005; 93971; 99285; J0295; J0696; J1644; J1940; J3370; J7060; Q0092

== ENCOUNTER 2023-01-15 16:01 | Inpatient (IN) | payer OTHER ==
[~2023-01-15] VITALS: Ht 172.7 cm; Wt 108.4 kg
[~2023-01-15 16:01] MED LIST changes: +CEPH500C16 PO; +GABA100C PO
[2023-01-15 16:51] VITALS: BP 112/59
--- NOTE | 2023-01-15 17:16 | NUR ---
AMBULATED W WALKER AND TO BED 2. PLACED ON HEART MONITOR. NO ACUTE DISTRESS
--- NOTE | 2023-01-15 17:52 | NUR ---
here for sob, legs edema, nsr on cm, o2 sat95% ra, sr up times 2
[2023-01-15 18:23] LABS: BASOPHILS # (AUTO) 0.1 K/uL (0.00-0.22); BASOPHILS % (AUTO) 0.6 % (0.0-2.0); EOSINOPHILS # (AUTO) 0.2 K/uL (0-0.4); EOSINOPHILS % (AUTO) 2.6 % (0.0-4.0); HEMATOCRIT 32.8 % (36-52); HEMOGLOBIN 11.1 g/dL (12.0-18.0); LYMPHOCYTES # (AUTO) 1.3 K/uL (2.0-11.5); LYMPHOCYTES % (AUTO) 14.2 % (20.5-51.1); MEAN CORPUSCULAR HEMOGLOBIN 32 pg (27-31); MEAN CORPUSCULAR HGB CONC 34 g/dL (33-37); MEAN CORPUSCULAR VOLUME 95.7 fL (80-94); MONOCYTES # (AUTO) 0.7 K/uL (0.8-1.0); MONOCYTES % (AUTO) 7.5 % (1.7-9.3); NEUTROPHILS # (AUTO) 6.7 K/uL (1.8-7.7); NEUTROPHILS % (AUTO) 75.1 % (42.2-75.2); PLATELET COUNT (AUTO) 149 K/uL (140-450); RED BLOOD CELL COUNT(AUTO) 3.43 MIL/uL (4.20-6.10); RED CELL DISTRIBUTION WIDTH 13.4 % (11.6-13.7); WHITE BLOOD COUNT (AUTO) 8.9 K/uL (4.8-10.8)
[2023-01-15 18:37] LABS: ALBUMIN 3.5 g/dL (3.4-5.0); ANION GAP 13.9 (8-16); ASPARTATE AMINOTRANSFERASE 19 U/L (15-37); CARBON DIOXIDE 30.6 mmol/L (21-32); CHLORIDE 103 mmol/L (98-107); CREATININE 1.8 mg/dL (0.6-1.3); GLUCOSE 85 mg/dL (74-106); POTASSIUM 4.5 mmol/L (3.5-5.1); SODIUM SERUM 143 mmol/L (136-145); TOTAL BILIRUBIN 0.7 mg/dL (0.0-1.0); UREA NITROGEN, BLOOD 40 mg/dL (7-18)
[2023-01-15] MEDS ORDERED: FUROSEMIDE 40 MG/4 ML VIAL IVP ONE (19:05)
--- NOTE | 2023-01-15 19:47 | NUR ---
pt in bed locked in w hob elevated. pt denies any sob at this time. denies chest pain. vss on monitor. ble swelling and erythema noted.
[2023-01-15] MEDS ORDERED: ACETAMINOPHEN 325 MG TAB PO PRN (19:55)
[2023-01-15] MEDS ORDERED: ZOLPIDEM 5 MG TAB PO PRN (19:55)
[2023-01-15] MEDS ORDERED: MORPHINE SULFATE 4 MG/ML SYR IVP PRN (19:55)
[2023-01-15] MEDS ORDERED: LORazepam 1 MG TAB PO PRN (19:55)
[2023-01-15] MEDS ORDERED: ONDANSETRON 4 MG/2 ML VIAL IVP PRN (19:55)
[2023-01-15] MEDS ORDERED: HYDROcodone/APAP 5/325 MG 1 TAB TAB PO PRN (19:55)
[2023-01-15] MEDS ORDERED: METO25TA PO (20:24)
[2023-01-15] MEDS ORDERED: LUBI24CA PO (20:24)
[2023-01-15] MEDS ORDERED: FLUT1POW3 IH (20:24)
[2023-01-15] MEDS ORDERED: FAMO-368 PO (20:24)
[2023-01-15] MEDS ORDERED: LINA290C PO (20:24)
--- NOTE | 2023-01-15 20:30 | NUR ---
report to aurora cuenca.
--- NOTE | 2023-01-15 20:44 | NUR ---
PT WAS TRANSPORTED VIA GURNEY FROM ER. PT IS AAOX4. ON RA. NOT IN ANY DISTRESS. PT HAS BILATERAL LOWER EXTREMITY EDEMA. LEFT LEG WITH ERYTHEMA. DENIES ANY PAIN. PT IS ABLE TO AMBULATE WITH ELAINE AND WALKER. EDUCATED PT BLASTING HELPER LIGHT SYSTEM. SAFETY MEASURES TAKEN. POC DISCUSSED. WILL CONTINUE TO MONITOR THE PT.
--- NOTE | 2023-01-15 20:45 | NUR ---
Patient will be admitted to [facility]. Admited to TELE. Will go to room 123B. Belongings list completed. Report to MARSHALL.
[2023-01-15 20:56] VITALS: BP 125/68
[2023-01-15] MEDS: FUROSEMIDE 20 MG/2 ML VIAL IVP SCH ×2 (21:00→23:46)
[2023-01-16] VITALS: BP 128/75
--- NOTE | 2023-01-16 | NUR ---
VITAL SIGNS TAKEN AND STABLE. PT DENIES ANY PAIN. PT NOT IN ANY DISTRESS. WILL CONTINUE TO MONITOR THE PT.
[2023-01-16 04:00] VITALS: BP 124/54
--- NOTE | 2023-01-16 04:00 | NUR ---
VITAL SIGNS TAKEN AND STABLE. PT DENIES ANY PAIN. PT HAS NO COMPLAINS AT THIS TIME. WILL CONTINUE TO MONITOR THE PT.
[2023-01-16 06:30] LABS: BASOPHILS % (AUTO) 0.8 % (0.0-2.0); EOSINOPHILS # (AUTO) 0.3 K/uL (0-0.4); HEMOGLOBIN 11.2 g/dL (12.0-18.0); LYMPHOCYTES # (AUTO) 1.3 K/uL (2.0-11.5); LYMPHOCYTES % (AUTO) 20.6 % (20.5-51.1); MEAN CORPUSCULAR HEMOGLOBIN 32 pg (27-31); MEAN CORPUSCULAR HGB CONC 34 g/dL (33-37); MEAN CORPUSCULAR VOLUME 94.5 fL (80-94); MONOCYTES # (AUTO) 0.6 K/uL (0.8-1.0); MONOCYTES % (AUTO) 9.7 % (1.7-9.3); NEUTROPHILS # (AUTO) 4.2 K/uL (1.8-7.7); NEUTROPHILS % (AUTO) 64.9 % (42.2-75.2); PLATELET COUNT (AUTO) 140 K/uL (140-450); RED BLOOD CELL COUNT(AUTO) 3.49 MIL/uL (4.20-6.10); RED CELL DISTRIBUTION WIDTH 13.5 % (11.6-13.7); WHITE BLOOD COUNT (AUTO) 6.4 K/uL (4.8-10.8)
[2023-01-16 07:13] LABS: ANION GAP 11.4 (8-16); CARBON DIOXIDE 33.4 mmol/L (21-32); CHLORIDE 101 mmol/L (98-107); GLUCOSE 107 mg/dL (74-106); POTASSIUM 3.8 mmol/L (3.5-5.1); SODIUM SERUM 142 mmol/L (136-145)
--- NOTE | 2023-01-16 07:15 | NUR ---
ENDORSED PT TO DAY SHIFT RN FOR CONTINUITY OF CARE. PT IS STABLE.
--- NOTE | 2023-01-16 07:16 | NUR ---
RECEIVED PATIENT FROM PM NURSE FOR CONTINUATION OF CARE.
[2023-01-16 07:24] LABS: CREATININE 0.6 mg/dL (0.6-1.3); UREA NITROGEN, BLOOD 35 mg/dL (7-18)
[2023-01-16 08:00] VITALS: BP 126/69
--- NOTE | 2023-01-16 08:43 | NUR ---
PATIENT HAS BEEN SCREENED AND CATEGORIZED MODERATE NUTRITION RISK. PATIENT WILL BE SEEN WITHIN 3-5 DAYS OF ADMISSION. 01/15/23-01/20/[address]
[2023-01-16] MEDS: FUROSEMIDE 20 MG/2 ML VIAL IVP SCH ×2 (09:06→21:00)
[2023-01-16 12:00] VITALS: BP 142/78
[2023-01-16] MEDS: ALBUTEROL SULFATE/IPRATROPIU 3 ML SOL IH SCH ×2 (13:27→19:51)
[2023-01-16 16:00] VITALS: BP 125/59
[2023-01-16] MEDS ORDERED: INSULIN LISPRO SLIDING SCALE 100 UNITS/ML VIAL SUBQ PRN (16:20)
[2023-01-16] MEDS ORDERED: DEXTROSE 50% 50 ML SYR IVP PRN (16:20)
[2023-01-16] MEDS ORDERED: MAG SULF 2000 MG/WATER PREMIX 50 ML IV PRN (16:20)
[2023-01-16] MEDS: cilostazoL 100 MG TAB PO SCH (16:30)
[2023-01-16] MEDS: BLOOD GLUCOSE MONITORING 1 DEV DEV FS SCH ×2 (17:06→21:50)
--- NOTE | 2023-01-16 19:30 | NUR ---
ENDORSED PATIENT TO PM NURSE FOR CONTINUATION OF CARE.
--- NOTE | 2023-01-16 19:31 | NUR ---
RECEIVED REPORT FROM DAY SHIFT NURSE MEE FOR CONTINUITY OF CARE. PT A/A/O. SITTING AT BEDSIDE CHAIR. RESPIRATIONS EVEN AND UNLABORED ON RA. ON FHA UNDERWRITER. DENIES PAIN. POC DISCUSSED. REPORT GIVEN TO NATALYA LAU. CALL LIGHT WITHIN REACH. SAFETY PRECAUTIONS IN PLACE.
[2023-01-16 20:00] VITALS: BP 106/48
--- NOTE | 2023-01-16 20:00 | NUR ---
Patient's Plan of Care was discussed and reviewed with HOLLAND CARNEY
--- NOTE | 2023-01-16 20:03 | NUR ---
V/S TAKEN. 106/48, 95, 18, 98.8, 96% ON RA. WHILE EXPLAINING TO THE PT THE POC, PT SAID THAT HE ALREADY TOOK HIS HOME MEDS THAT HE USUALLY TAKES AT NIGHT NAMELY METOPROLOL 25MG, METFORMIN 850MG, FAMOTIDINE 20MG, LISINOPRIL 20MG, CILOSTAZOL 100MG AND LOVASTATIN 20MG. FOUND OUT THAT ALL HIS HOME MEDS WERE AT BEDSIDE. INFORMED PT ABOUT MEDICATION ADMINISTRATION RULES WHILE STAYING AT THE HOSPITAL. PT STATED "I DO NOT KNOW I CAN NOT TAKE MY HOME MEDS WHILE I'M HERE AT THE HOSPITAL. EXPLAINED RISKS OF TAKING HOME MEDS WHILE IN THE HOSPITAL. PT VERBALIZED UNDERSTANDING. TOOK ALL HOME MEDS OUT OF THE PT'S ROOM. INFORMED PT THAT HOME MEDS WILL BE SENT TO PHARMACY AND WILL BE GIVEN BACK TO HIM UPON DC OR CAN BE TAKEN BACK HOME BY A FAMILY MEMBER. PT AGREED AND VERBALIZED UNDERSTANDING. LES AND NATALYA LAU WERE INFORMED.
[2023-01-16] MEDS: METOPROLOL 25 MG TAB PO SCH (21:00)
--- NOTE | 2023-01-16 21:00 | NUR ---
DID NOT ADMINISTER 2100 LASIX TO PATIENT. WAS INFORMED BY HOLLAND CARNEY THAT PATIENT'S BP WAS LOW AND PATIENT HAD JUST TAKEN HIS HOME BP MEDICATIONS. HOLLAND CARNEY TOLD ME THAT SHE HAD EDUCATED THE PATIENT ON THE IMPORTANCE OF NOT TAKING HIS MEDS FROM HOME WHILE IN THE HOSPITAL AND PATIENT VERBALIZED UNDERSTANDING. HOLLAND CARNEY WILL CONTINUE TO ASSESS PATIENT'S BLOOD PRESSURE.
--- NOTE | 2023-01-16 21:50 | NUR ---
ADMINISTERED DUE MED. NON-ADMIT METOPROLOL. NIGHT DOSE ALREADY TAKEN FROM HOME MEDS PER PT.
[2023-01-17] VITALS: BP 116/44
[2023-01-17] MEDS: ALBUTEROL SULFATE/IPRATROPIU 3 ML SOL IH SCH ×3 (01:00→13:47)
[2023-01-17 04:00] VITALS: BP 115/52
[2023-01-17 05:55] LABS: BASOPHILS % (AUTO) 0.6 % (0.0-2.0); EOSINOPHILS # (AUTO) 0.2 K/uL (0-0.4); EOSINOPHILS % (AUTO) 2.7 % (0.0-4.0); HEMATOCRIT 32.4 % (36-52); HEMOGLOBIN 11.1 g/dL (12.0-18.0); LYMPHOCYTES # (AUTO) 1.2 K/uL (2.0-11.5); LYMPHOCYTES % (AUTO) 15.9 % (20.5-51.1); MEAN CORPUSCULAR HEMOGLOBIN 32 pg (27-31); MEAN CORPUSCULAR HGB CONC 34 g/dL (33-37); MEAN CORPUSCULAR VOLUME 94.1 fL (80-94); MONOCYTES # (AUTO) 0.5 K/uL (0.8-1.0); MONOCYTES % (AUTO) 7.4 % (1.7-9.3); NEUTROPHILS # (AUTO) 5.4 K/uL (1.8-7.7); NEUTROPHILS % (AUTO) 73.4 % (42.2-75.2); PLATELET COUNT (AUTO) 141 K/uL (140-450); RED BLOOD CELL COUNT(AUTO) 3.45 MIL/uL (4.20-6.10); RED CELL DISTRIBUTION WIDTH 13.6 % (11.6-13.7); WHITE BLOOD COUNT (AUTO) 7.4 K/uL (4.8-10.8)
[2023-01-17] MEDS: BLOOD GLUCOSE MONITORING 1 DEV DEV FS SCH ×2 (06:39→11:30)
--- NOTE | 2023-01-17 06:39 | NUR ---
NO INSULIN COVERAGE NEEDED FOR BS 113. PT DENIES PAIN. NO DISTRESS NOTED. SAFETY PRECAUTIONS REMAINED IN PLACE.
[2023-01-17] MEDS: cilostazoL 100 MG TAB PO SCH (06:49)
[2023-01-17 06:58] LABS: CARBON DIOXIDE 35.2 mmol/L (21-32); CHLORIDE 96 mmol/L (98-107); CREATININE 0.6 mg/dL (0.6-1.3); GLUCOSE 102 mg/dL (74-106); POTASSIUM 4.2 mmol/L (3.5-5.1); SODIUM SERUM 138 mmol/L (136-145); UREA NITROGEN, BLOOD 35 mg/dL (7-18)
--- NOTE | 2023-01-17 07:10 | NUR ---
RECEIVED PATIENT FROM PM NURSE FOR CONTINUATION OF CARE.
--- NOTE | 2023-01-17 07:19 | NUR ---
GAVE BEDSIDE REPORT TO RN MEE FOR CONTINUITY OF CARE. ENDORSED PT HOME MEDS TO BRING TO PHARMACY. PT HOME MED BAG RETURNED TO PT. PT PLACED HIS WALLET AND CAR FOY INSIDE. BAG PLACED ON TOP OF BEDSIDE TABLE. PT IS STABLE.
[2023-01-17 08:00] VITALS: BP 113/56
[2023-01-17] MEDS ORDERED: FAMOTIDINE 20 MG TAB PO SCH (09:00)
[2023-01-17] MEDS: METOPROLOL 25 MG TAB PO SCH (09:35)
[2023-01-17] MEDS: FUROSEMIDE 20 MG/2 ML VIAL IVP SCH (09:39)
--- NOTE | 2023-01-17 11:45 | NUR ---
DC PLANNIN YRS OLD MALE PATIENT WAS ADMITTED FROM HOME WITH A DX OF JED, FLUID OVERLOAD. PATIENT HAS A HX OF HTN, DM HLD OBESITY AND CHRONIC LEG EDEMA/FREDDIE STASIS . CXR SHOWED LOW LUNG VOLUMES WITH BIBASILAR SUBSEGMENTAL ATELECTASIS/INFILTRATE. RAPID COVID TEST NEGATIVE. ADMINISTERED IV LASIX AND CONTINUED HOME MEDS CONSULTED WITH NEPHRO. DC PLAN TO GO HOME WHEN STABLE. CM TO FOLLOW
[2023-01-17 12:00] VITALS: BP 99/55
--- NOTE | 2023-01-17 13:03 | NUR ---
DC PLANNING ASSESSMENT COMPLETE PLEASE REFER TO ASSESSMENT FOR ADDITIONAL DETAILS PT REPORTS DC PLAN IS TO RETURN HOME, WITH HIS PROVIDING TRANSPORTATION , WHEN MEDICALLY STABLE. PT REQUESTING SW OUTREACH TO PCP OFFICE, TO NOTIFY PCP OF HIS ADMISSION TO [facility]. SPOKE WITH ROBY, OD GRINDER OPERATOR, AT PCP OFFICE AND NOTIFIED HER OF PTS ADMISSION. ROBY REPORTS SHE WOULD NOTIFY PROVIDER. Addendum: 01/17/23 at 1306 by Gloria FANG Amended: Links added.
--- NOTE | 2023-01-17 15:00 | NUR ---
MD CLEARED PATIENT FOR DISCHARGE AFTER ECHO RESULT.
[2023-01-17 16:00] VITALS: BP 98/65
[2023-01-17 16:55] VITALS: BP 98/65
--- NOTE | 2023-01-17 17:10 | NUR ---
OUT PATIENT ECHO DECIDED FOR PATIENT. PATIENT VITALS CHECKED. PATIENT STABLE. PATIENT DISCHARGED.
== END 2023-01-17 17:40 | disposition home or self-care (01) | DRG 682 ==
LOC: MED 16:01 → MTU 19:51 → OBSVTOIN 19:58 → MTU 19:58
PROVIDERS: ADMIT Internal Medicine; ATTEND Internal Medicine
DX: N17.9 Acute kidney failure, unspecified (principal); I50.33 Acute on chronic diastolic (congestive) heart failure; L03.116 Cellulitis of left lower limb; E66.2 Morbid (severe) obesity with alveolar hypoventilation; I11.0 Hypertensive heart disease with heart failure; E87.70 Fluid overload, unspecified; E11.9 Type 2 diabetes mellitus without complications; Z20.822 Contact with and (suspected) exposure to COVID-19; E78.5 Hyperlipidemia, unspecified; E66.9 Obesity, unspecified; E83.42 Hypomagnesemia; I87.8 Other specified disorders of veins; Z79.1 Long term (current) use of non-steroidal anti-inflammatories (NSAID); Z79.899 Other long term (current) drug therapy; Z68.36 Body mass index [BMI] 36.0-36.9, adult
CPT/HCPCS: 36415; 36600; 71045; 80048; 80053; 82803; 82948; 83735; 83880; 85025; 87081; 93005; 94640; 96374; 99285; J1644; J1940; J3475; Q0092

== ENCOUNTER 2023-03-31 15:55 | Emergency (ER) | payer OTHER ==
[~2023-03-31] VITALS: Ht 170.2 cm; Wt 90.7 kg
[~2023-03-31 15:55] MED LIST changes: -CEPH500C16 PO; -CYCL-654 PO; +FAMO-368 PO; +FLUT1POW3 IH; -GABA100C PO; -IBUP-1842 PO; -LACT-103 PO; -LID5T TP; +LINA290C PO; +LUBI24CA PO; -METH-1681 PO; +METO25TA PO; -MIRA25TE PO; -NA P133E RC; -OMEP40EC24 PO; -PEG4000P3 PO; -TAMS0.4C96 PO; -TRAM-748 PO; -VIC PO
[2023-03-31 16:12] VITALS: BP 127/60; PULSE 80; RESP 18; TEMP 98; O2SAT 98
[2023-03-31 17:00] VITALS: BP 127/60; PULSE 80; RESP 18; TEMP 98; O2SAT 98
--- NOTE | 2023-03-31 17:01 | NUR ---
Patient discharged with v/s stable. Written and verbal after care instructions given and explained. Patient verbalized understanding. Ambulatory with steady gait. All questions addressed prior to discharge. Advised to follow up with PMD.
== END 2023-03-31 17:00 | disposition home or self-care (01) ==
LOC: MED 15:55
DX: R22.43 Localized swelling, mass and lump, lower limb, bilateral (principal); E11.9 Type 2 diabetes mellitus without complications; I10 Essential (primary) hypertension; Z79.899 Other long term (current) drug therapy
CPT/HCPCS: 99281

== ENCOUNTER 2023-04-08 17:41 | Observation (INO) | payer OTHER ==
[~2023-04-08] VITALS: Ht 175.3 cm; Wt 105.7 kg
[2023-04-08 17:55] VITALS: BP 136/70; PULSE 84; RESP 20; TEMP 97.8; O2SAT 88
[2023-04-08] MEDS ORDERED: FUROSEMIDE 40 MG/4 ML VIAL IVP ONE (18:05)
--- NOTE | 2023-04-08 18:16 | NUR ---
ASSISTE TO BED8 , REPORT TO HINA HOANG
[2023-04-08 18:52] LABS: BASOPHILS # (AUTO) 0.1 K/uL (0.00-0.22); BASOPHILS % (AUTO) 0.7 % (0.0-2.0); EOSINOPHILS # (AUTO) 0.3 K/uL (0-0.4); EOSINOPHILS % (AUTO) 3.7 % (0.0-4.0); HEMATOCRIT 29.8 % (36-52); HEMOGLOBIN 10.3 g/dL (12.0-18.0); LYMPHOCYTES # (AUTO) 1.4 K/uL (2.0-11.5); LYMPHOCYTES % (AUTO) 16.3 % (20.5-51.1); MEAN CORPUSCULAR HEMOGLOBIN 33 pg (27-31); MEAN CORPUSCULAR HGB CONC 35 g/dL (33-37); MEAN CORPUSCULAR VOLUME 94.4 fL (80-94); MONOCYTES # (AUTO) 0.7 K/uL (0.8-1.0); MONOCYTES % (AUTO) 8.8 % (1.7-9.3); NEUTROPHILS % (AUTO) 70.5 % (42.2-75.2); PLATELET COUNT (AUTO) 165 K/uL (140-450); RED BLOOD CELL COUNT(AUTO) 3.16 MIL/uL (4.20-6.10); RED CELL DISTRIBUTION WIDTH 13.8 % (11.6-13.7); WHITE BLOOD COUNT (AUTO) 8.4 K/uL (4.8-10.8)
[2023-04-08 19:10] LABS: ALBUMIN 3.3 g/dL (3.4-5.0); ANION GAP 10.8 (8-16); ASPARTATE AMINOTRANSFERASE 20 U/L (15-37); CARBON DIOXIDE 32.9 mmol/L (21-32); CHLORIDE 102 mmol/L (98-107); CREATININE 1.2 mg/dL (0.6-1.3); GLUCOSE 67 mg/dL (74-106); POTASSIUM 3.7 mmol/L (3.5-5.1); SODIUM SERUM 142 mmol/L (136-145); UREA NITROGEN, BLOOD 24 mg/dL (7-18)
--- NOTE | 2023-04-08 19:15 | NUR ---
Received the patient from Triage, presented to the ER with C/O SOB and bilateral 4+ pitting edema. Patient is A/O X 4, denies chest pain/palpitation/dizziness/nausea/vomiting/headache. Patient seen by the provider, orders in place and completed. Patient placed on the desk monitor and NSR observed, ECG, CXR ordered and completed. (LT) A/C #20G angio-cath inserted, patent, site WNL, blood collected and sent. Patient medicated as per orders (see eMAR). Patient will be admitted as per tge provider. Patient is stable on the stretcher in the lowest position, wheels locked, call alejandro within reach and awaiting admission, assigned bed, is at the bedside.
--- NOTE | 2023-04-08 20:00 | NUR ---
Patient assisted to restroom. Currently, patient awake and comfortable in bed. No complaints of pain or signs of acute distress at this time. Side rails up and call light within reach.
[2023-04-08] MEDS ORDERED: MORPHINE SULFATE 4 MG/ML SYR IVP PRN (21:40)
[2023-04-08] MEDS ORDERED: ACETAMINOPHEN 325 MG TAB PO PRN (21:40)
[2023-04-08] MEDS ORDERED: MAGNESIUM OXIDE 400 MG TAB PO PRN (21:40)
[2023-04-08] MEDS ORDERED: HYDROcodone/APAP 5/325 MG 1 TAB TAB PO PRN (21:40)
[2023-04-08] MEDS ORDERED: ONDANSETRON 4 MG/2 ML VIAL IVP PRN (21:40)
[2023-04-08] MEDS ORDERED: POTASSIUM CHLORIDE 10 MEQ TABER PO PRN (21:40)
--- NOTE | 2023-04-08 21:45 | NUR ---
Patient may have oral intake as per ERMD. Given 2 cracker packets, 1 cup of orange juice and 1 cup applesauce.
--- NOTE | 2023-04-08 23:00 | NUR ---
Patient assisted to restroom.
--- NOTE | 2023-04-09 01:25 | NUR ---
Patient asleep and comfortable in bed. No complaints of pain or signs of acute distress at this time. Side rails up and call light within reach.
--- NOTE | 2023-04-09 05:39 | NUR ---
Patient is asleep and comfortable in chair. Patient verbalized he prefers to sleep in chair than in the bed. No complaints of pain or signs of acute distress at this time. Call light within reach. Addendum: 04/09/23 at 0550 by [facility] Patient back in bed.
[2023-04-09] MEDS ORDERED: GLIP5TER PO (06:17)
[2023-04-09] MEDS ORDERED: LINA290C PO (06:17)
[2023-04-09] MEDS ORDERED: LUBI24CA PO (06:17)
[2023-04-09] MEDS ORDERED: FAMO-90 PO (06:17)
[2023-04-09] MEDS ORDERED: POTA10TA70 PO (06:17)
[2023-04-09 07:13] LABS: BASOPHILS % (AUTO) 0.8 % (0.0-2.0); EOSINOPHILS # (AUTO) 0.3 K/uL (0-0.4); EOSINOPHILS % (AUTO) 4.7 % (0.0-4.0); HEMATOCRIT 29.5 % (36-52); LYMPHOCYTES # (AUTO) 1.1 K/uL (2.0-11.5); LYMPHOCYTES % (AUTO) 17.9 % (20.5-51.1); MEAN CORPUSCULAR HEMOGLOBIN 32 pg (27-31); MEAN CORPUSCULAR HGB CONC 34 g/dL (33-37); MEAN CORPUSCULAR VOLUME 94.9 fL (80-94); MONOCYTES # (AUTO) 0.6 K/uL (0.8-1.0); MONOCYTES % (AUTO) 10.3 % (1.7-9.3); NEUTROPHILS # (AUTO) 4.2 K/uL (1.8-7.7); NEUTROPHILS % (AUTO) 66.3 % (42.2-75.2); PLATELET COUNT (AUTO) 148 K/uL (140-450); RED CELL DISTRIBUTION WIDTH 14.2 % (11.6-13.7); WHITE BLOOD COUNT (AUTO) 6.3 K/uL (4.8-10.8)
[2023-04-09 07:35] LABS: ANION GAP 10.9 (8-16); CARBON DIOXIDE 35.4 mmol/L (21-32); CHLORIDE 100 mmol/L (98-107); GLUCOSE 107 mg/dL (74-106); POTASSIUM 3.3 mmol/L (3.5-5.1); SODIUM SERUM 143 mmol/L (136-145); UREA NITROGEN, BLOOD 22 mg/dL (7-18)
[2023-04-09 08:03] VITALS: O2SAT 98
--- NOTE | 2023-04-09 08:12 | NUR ---
PT STATES HES NOT IN ANY PAIN CALL LIGHT WITH IN REACH. PT VSS.
--- NOTE | 2023-04-09 08:12 | NUR ---
Recevied pt from RN Ada pt states he isnt feeling any signs of sob. pt has bilateral edam 4 +. Pt is on 3 liters of o2 Patient is A/O X 4, denies chest pain/ palpitation/ dizziness/nausea/vomiting/headache. Pt has a LFT A/C #20 G agio-cath inserted, site is patent non infiltrated, Pt is satting at 99 percent. VSS. Pt is ambulatory with assist. Pt placed on monitor. Will continue to monitor. PMHX HTN DM CHF IBS GERD SOB NKA
[2023-04-09] MEDS: FUROSEMIDE 40 MG/4 ML VIAL IVP SCH ×2 (09:00→21:42)
--- NOTE | 2023-04-09 10:05 | NUR ---
at bedside. Plan of care has been explained to pts family and pt. Pt has had a full meal and is sitting up in chair on monitor.
--- NOTE | 2023-04-09 14:36 | NUR ---
PT IS HAS BEEN TRANSFERED TO CHAIR FROM BED. PT STATES HE WOULD LIKE TO SIT UP IN CHAIR. PT ON MONITOR VSS.
[2023-04-09] MEDS ORDERED: DOCUSATE SODIUM 100 MG GELCAP PO ONE ×2 (16:41)
--- NOTE | 2023-04-09 16:45 | NUR ---
PT AMBULATED TO RESTROOM.
[2023-04-09] MEDS: DOCUSATE SODIUM 100 MG GELCAP PO SCH (17:10)
[2023-04-09] MEDS ORDERED: INSULIN LISPRO SLIDING SCALE 100 UNITS/ML VIAL SUBQ PRN (17:20)
--- NOTE | 2023-04-09 19:13 | NUR ---
Pt report given to HOLLAND SARGENT. Transfer of care at 1930.
--- NOTE | 2023-04-09 19:33 | NUR ---
RECEIVED REPORT FROM MARILYN LINO. PT SITTING IN CHAIR AT BEDSIDE. NO S/S OF PAIN OR DISTRESS AT THIS TIME. CALL LIGHT WITHIN REACH.
--- NOTE | 2023-04-09 19:58 | NUR ---
Patient discharged with v/s stable. Written and verbal after care instructions given and explained to parent/guardian. Parent/Guardian verbalized understanding. Ambulatoryby parent. All questions addressed prior to discharge. Advised to follow up with PMD.
[2023-04-09 20:15] VITALS: PULSE 84; RESP 18; O2SAT 98
--- NOTE | 2023-04-09 20:15 | NUR ---
RECEIVED PT FROM ER NURSE VIA THADDEUS FOR CONTINUITY OF CARE.PATIENT IS AOX4. ADMITTED FOR CHF EXACERBATION. NO COMPLAIN OF PAIN AT THIS TIME. PIV INTACT AND PATENT
--- NOTE | 2023-04-09 20:29 | NUR ---
Patient will be admitted to care of DR. CLIFFORD. Admited to [facility]. Will go to [id number]. Belongings list completed. Report to NATALYA SAHU.
[2023-04-09] MEDS: METOPROLOL 25 MG TAB PO SCH (21:42)
[2023-04-10] VITALS (10 sets, daily range): BP systolic 120–128; BP diastolic 52–79; PULSE 58–88; RESP 18; TEMP 97.2–97.9; O2SAT 94–98
[2023-04-10 05:16] LABS: BASOPHILS % (AUTO) 0.6 % (0.0-2.0); EOSINOPHILS # (AUTO) 0.3 K/uL (0-0.4); EOSINOPHILS % (AUTO) 3.4 % (0.0-4.0); HEMATOCRIT 31.1 % (36-52); HEMOGLOBIN 10.7 g/dL (12.0-18.0); LYMPHOCYTES # (AUTO) 1.2 K/uL (2.0-11.5); LYMPHOCYTES % (AUTO) 15.4 % (20.5-51.1); MEAN CORPUSCULAR HEMOGLOBIN 33 pg (27-31); MEAN CORPUSCULAR HGB CONC 35 g/dL (33-37); MEAN CORPUSCULAR VOLUME 94.7 fL (80-94); MONOCYTES # (AUTO) 0.7 K/uL (0.8-1.0); MONOCYTES % (AUTO) 8.8 % (1.7-9.3); NEUTROPHILS # (AUTO) 5.6 K/uL (1.8-7.7); NEUTROPHILS % (AUTO) 71.8 % (42.2-75.2); PLATELET COUNT (AUTO) 149 K/uL (140-450); RED BLOOD CELL COUNT(AUTO) 3.29 MIL/uL (4.20-6.10); RED CELL DISTRIBUTION WIDTH 13.6 % (11.6-13.7); WHITE BLOOD COUNT (AUTO) 7.8 K/uL (4.8-10.8)
[2023-04-10 05:35] LABS: ANION GAP 7.2 (8-16); CARBON DIOXIDE 38.6 mmol/L (21-32); CHLORIDE 100 mmol/L (98-107); CREATININE 0.9 mg/dL (0.6-1.3); GLUCOSE 118 mg/dL (74-106); POTASSIUM 3.8 mmol/L (3.5-5.1); SODIUM SERUM 142 mmol/L (136-145); UREA NITROGEN, BLOOD 20 mg/dL (7-18)
[2023-04-10] MEDS ORDERED: DEXTROSE 50% 50 ML SYR IVP PRN (06:00)
--- NOTE | 2023-04-10 07:25 | NUR ---
ENDORSED PT TO AM NURSE FOR CONTINUITY OF CARE. PT IS STABLE
[2023-04-10] MEDS: BLOOD GLUCOSE MONITORING 1 DEV DEV FS SCH ×3 (08:00→15:51)
[2023-04-10] MEDS: METOPROLOL 25 MG TAB PO SCH (08:25)
[2023-04-10] MEDS: FUROSEMIDE 40 MG/4 ML VIAL IVP SCH (08:25)
[2023-04-10] MEDS: DOCUSATE SODIUM 100 MG GELCAP PO SCH (08:26)
--- NOTE | 2023-04-10 09:02 | NUR ---
NURSES NOTE PATIENT RECEIVED AT BED SIDE A/OX4 , VSS , ON NASAL CANNULA 3 LITER O2 , SINUS RHYTHM ON MONITOR ON CARDIAC DIET , NO N/V , SAFETY PROACTION ON PLACE , SIDE RAILS UP X3 , BED IN LOWER POSITION CALL LIGHT WITHIN REACH , SKIN SEE SKIN ASSESSMENT , EDUCATION GIVEN ABOUT CARE PLAN , MEDS REGIMEN PAIN MEDS , SAFETY , PATIENT AMBULATORY INDEPENDENT , NO COMPLAIN AT THIS TIME , PT STILL UNDER OBSERVE .
--- NOTE | 2023-04-10 11:25 | NUR ---
PATIENT HAS BEEN SCREENED AND CATEGORIZED MODERATE NUTRITION RISK. PATIENT WILL BE SEEN WITHIN 3-5 DAYS OF ADMISSION. 04/08/23-04/13/[address]
--- NOTE | 2023-04-10 12:08 | NUR ---
PATIENT SEEN BY , O2 STOPPED FOR PATIENT , IF HIS O2 SAT GOOD HE WILL BE DISCHARGE TODAY PM INCOURGE PATIENT TO WALK , NO COMPLAIN AT THIS TIME , STILL UNDER OBSERVE .
[2023-04-10] MEDS ORDERED: FURO-570 PO (12:33)
[2023-04-10] MEDS ORDERED: POTA10TA70 PO (12:33)
--- NOTE | 2023-04-10 17:11 | NUR ---
patient has discharge order to go home , patient A/OX4 , VSS , normal sinus rhythm on monitor discharge packet explain for patient , patient verbalized understanding of given , medication reconciled all document signed and placed on chart , his iv , arm band and heart monitor removed , assisted to lobby by wheel chair , and pt will pecked up by his family , address pt to followup with pcp within week
== END 2023-04-10 17:35 | disposition home or self-care (01) ==
LOC: MED 17:41 → UNDODISOB 21:42 → MTU 21:42
PROVIDERS: ADMIT Student in an Organized Health Care Education/Training Program; ATTEND Student in an Organized Health Care Education/Training Program
DX: I11.0 Hypertensive heart disease with heart failure (principal); I50.9 Heart failure, unspecified; J96.01 Acute respiratory failure with hypoxia; E11.9 Type 2 diabetes mellitus without complications; J81.1 Chronic pulmonary edema; E78.5 Hyperlipidemia, unspecified; Z79.899 Other long term (current) drug therapy; Z53.29 Procedure and treatment not carried out because of patient's decision for other reasons
CPT/HCPCS: 36415; 71045; 80048; 80053; 82948; 83735; 83880; 84484; 85025; 87040; 87081; 93005; 96372; 96374; 96376; 99285; G0378; J1644; J1815; J1940; Q0092

== ENCOUNTER 2023-05-09 13:27 | Emergency (ER) | payer OTHER ==
[~2023-05-09] VITALS: Ht 175.3 cm; Wt 117.9 kg
[~2023-05-09 13:27] MED LIST changes: -FAMO-368 PO; +FAMO-90 PO; -FLUT1POW3 IH; -GLIP10TE PO; +GLIP5TER PO; -LISI-486 PO
[2023-05-09 13:30] VITALS: BP 116/58; PULSE 96; RESP 17; TEMP 97.7; O2SAT 98
[2023-05-09] MEDS ORDERED: MORPHINE SULFATE 4 MG/ML SYR IVP ONE (14:25)
[2023-05-09] MEDS ORDERED: MECLIZINE 25 MG TAB PO ONE (14:25)
[2023-05-09 14:43] LABS: BASOPHILS # (AUTO) 0.1 K/uL (0.00-0.22); BASOPHILS % (AUTO) 0.7 % (0.0-2.0); EOSINOPHILS # (AUTO) 0.2 K/uL (0-0.4); EOSINOPHILS % (AUTO) 2.7 % (0.0-4.0); HEMATOCRIT 32.1 % (36-52); HEMOGLOBIN 10.9 g/dL (12.0-18.0); LYMPHOCYTES # (AUTO) 1.2 K/uL (2.0-11.5); MEAN CORPUSCULAR HEMOGLOBIN 32 pg (27-31); MEAN CORPUSCULAR HGB CONC 34 g/dL (33-37); MEAN CORPUSCULAR VOLUME 94.3 fL (80-94); MONOCYTES # (AUTO) 0.6 K/uL (0.8-1.0); MONOCYTES % (AUTO) 7.4 % (1.7-9.3); NEUTROPHILS # (AUTO) 5.6 K/uL (1.8-7.7); NEUTROPHILS % (AUTO) 73.2 % (42.2-75.2); PLATELET COUNT (AUTO) 169 K/uL (140-450); RED BLOOD CELL COUNT(AUTO) 3.41 MIL/uL (4.20-6.10); RED CELL DISTRIBUTION WIDTH 13.3 % (11.6-13.7); WHITE BLOOD COUNT (AUTO) 7.7 K/uL (4.8-10.8)
[2023-05-09 14:55] LABS: INR 0.95 (0.8-1.2); PARTIAL THROMBOPLASTIN TIME 25.6 secs (22-35.6)
[2023-05-09 15:07] LABS: ALANINE AMINOTRANSFERASE 16 U/L (12-78); ALBUMIN 3.3 g/dL (3.4-5.0); ALKALINE PHOSPHATASE 97 U/L (50-136); ANION GAP 13.3 (8-16); ASPARTATE AMINOTRANSFERASE 15 U/L (15-37); CALCIUM 8.8 mg/dL (8.5-10.1); CARBON DIOXIDE 28.7 mmol/L (21-32); CHLORIDE 100 mmol/L (98-107); CREATININE 2.3 mg/dL (0.6-1.3); GLUCOSE 148 mg/dL (74-106); SODIUM SERUM 139 mmol/L (136-145); TOTAL BILIRUBIN 0.9 mg/dL (0.0-1.0); UREA NITROGEN, BLOOD 57 mg/dL (7-18)
[2023-05-09] MEDS ORDERED: NACL 0.9% 1,000 ML IV ONE (15:15)
[2023-05-09] MEDS ORDERED: POTASSIUM CHLORIDE 10 MEQ TABER PO ONE (15:25)
[2023-05-09 17:37] VITALS: BP 100/56; PULSE 76; RESP 16; TEMP 98.6; O2SAT 99
[2023-05-09] MEDS ORDERED: MECL-303 PO (17:57)
[2023-05-09] MEDS ORDERED: ACET-10509 PO (17:57)
== END 2023-05-09 18:00 | disposition home or self-care (01) ==
LOC: MED 13:27
DX: R42 Dizziness and giddiness (principal); R51.9 Headache, unspecified; N17.9 Acute kidney failure, unspecified; E87.6 Hypokalemia; E11.9 Type 2 diabetes mellitus without complications; I11.0 Hypertensive heart disease with heart failure; I50.9 Heart failure, unspecified; Z79.84 Long term (current) use of oral hypoglycemic drugs; Z79.899 Other long term (current) drug therapy
CPT/HCPCS: 36415; 70450; 71045; 80053; 83880; 84484; 85025; 85610; 85730; 93005; 96361; 96374; 99285; J2270; J7030; J8597

== ENCOUNTER 2024-02-16 19:51 | Observation (INO) | payer OTHER ==
[~2024-02-16] VITALS: Ht 172.7 cm; Wt 82.6 kg
[~2024-02-16 19:51] MED LIST changes: +ACET-10509 PO; +MECL-303 PO
[2024-02-16 20:07] VITALS: BP 93/47; PULSE 78; RESP 16; TEMP 96.3; O2SAT 98
[2024-02-16 20:27] VITALS: O2SAT 98
[2024-02-16] MEDS: NACL 0.9% 1,000 ML IV ONE (20:53)
[2024-02-16 20:56] LABS: BASOPHILS % (AUTO) 0.3 % (0.0-2.0); EOSINOPHILS # (AUTO) 0.1 K/uL (0-0.4); HEMATOCRIT 31.6 % (36-52); HEMOGLOBIN 10.7 g/dL (12.0-18.0); LYMPHOCYTES # (AUTO) 0.6 K/uL (2.0-11.5); LYMPHOCYTES % (AUTO) 7.8 % (20.5-51.1); MEAN CORPUSCULAR HEMOGLOBIN 34 pg (27-31); MEAN CORPUSCULAR HGB CONC 34 g/dL (33-37); MONOCYTES # (AUTO) 0.4 K/uL (0.8-1.0); MONOCYTES % (AUTO) 6.1 % (1.7-9.3); NEUTROPHILS % (AUTO) 84.8 % (42.2-75.2); PLATELET COUNT (AUTO) 163 K/uL (140-450); RED BLOOD CELL COUNT(AUTO) 3.19 MIL/uL (4.20-6.10); RED CELL DISTRIBUTION WIDTH 14.8 % (11.6-13.7); WHITE BLOOD COUNT (AUTO) 7.1 K/uL (4.8-10.8)
[2024-02-16 21:05] LABS: ANION GAP 15.5 (8-16); CALCIUM 9.2 mg/dL (8.5-10.1); CARBON DIOXIDE 17.9 mmol/L (21-32); CHLORIDE 105 mmol/L (98-107); CREATININE 1.9 mg/dL (0.6-1.3); GLUCOSE 66 mg/dL (74-106); POTASSIUM 4.4 mmol/L (3.5-5.1); SODIUM SERUM 134 mmol/L (136-145); UREA NITROGEN, BLOOD 42 mg/dL (7-18)
[2024-02-16 21:08] LABS: INR 0.96 (0.8-1.2); PARTIAL THROMBOPLASTIN TIME 26.5 secs (22-35.6); PROTHROMBIN TIME 10.1 secs (10.8-13.4)
[2024-02-16 21:16] LABS: LACTIC ACID 2.1 mmol/L (0.4-2.0)
[2024-02-16 21:52] LABS: ALANINE AMINOTRANSFERASE 19 U/L (12-78); ALBUMIN 3.4 g/dL (3.4-5.0); ALKALINE PHOSPHATASE 102 U/L (50-136); ASPARTATE AMINOTRANSFERASE 12 U/L (15-37); BILIRUBIN,DIRECT 0.1 mg/dL (0.0-0.3); TOTAL BILIRUBIN 0.4 mg/dL (0.0-1.0); TOTAL PROTEIN, SERUM 6.7 g/dL (6.4-8.2)
[2024-02-16] MEDS ORDERED: CEFEPIME 1,000 MG VIAL ONE (22:51)
[2024-02-16] MEDS: CEFEPIME 1,000 MG in DEXTROSE 5% 50 ML IV ONE (23:05)
[2024-02-16] MEDS ORDERED: VANCOMYCIN 1,000 MG VIAL ONE (23:31)
[2024-02-16] MEDS: VANCOMYCIN 1,000 MG in DEXTROSE 5% 250 ML IV ONE (23:51)
[2024-02-17] VITALS (9 sets, daily range): BP systolic 97–136; BP diastolic 53–88; PULSE 52–76; RESP 16–20; TEMP 97.3–98.3; O2SAT 94–99
[2024-02-17 01:03] LABS: APPEARANCE,URINE CLEAR (CLEAR); BILIRUBIN,URINE NEGATIVE (NEGATIVE); BLOOD, URINE NEGATIVE (NEGATIVE); COLOR,URINE YELLOW (YELLOW); LEUKOCYTE ESTERASE ,URINE NEGATIVE (NEGATIVE); NITRITE, URINE NEGATIVE (NEGATIVE); PROTEIN,URINE 1+ (NEGATIVE); UGLUCOSE NEGATIVE (NEGATIVE); UROBILINOGEN,URINE 0.2 EU/dL (0.2 - 1)
[2024-02-17] MEDS ORDERED: TENA50TA PO (01:16)
[2024-02-17] MEDS: NACL 0.9% 1,000 ML IV SCH (05:18)
[2024-02-17 06:49] LABS: ANION GAP 14.7 (8-16); CALCIUM 8.6 mg/dL (8.5-10.1); CARBON DIOXIDE 17.4 mmol/L (21-32); CHLORIDE 106 mmol/L (98-107); CREATININE 1.6 mg/dL (0.6-1.3); POTASSIUM 4.1 mmol/L (3.5-5.1); SODIUM SERUM 134 mmol/L (136-145); UREA NITROGEN, BLOOD 39 mg/dL (7-18)
[2024-02-17 06:53] LABS: BASOPHILS % (AUTO) 0.3 % (0.0-2.0); EOSINOPHILS % (AUTO) 0.2 % (0.0-4.0); HEMOGLOBIN 9.6 g/dL (12.0-18.0); LYMPHOCYTES # (AUTO) 0.4 K/uL (2.0-11.5); LYMPHOCYTES % (AUTO) 8.6 % (20.5-51.1); MEAN CORPUSCULAR HEMOGLOBIN 33 pg (27-31); MEAN CORPUSCULAR HGB CONC 33 g/dL (33-37); MEAN CORPUSCULAR VOLUME 99.8 fL (80-94); MONOCYTES # (AUTO) 0.3 K/uL (0.8-1.0); MONOCYTES % (AUTO) 6.3 % (1.7-9.3); NEUTROPHILS # (AUTO) 3.8 K/uL (1.8-7.7); NEUTROPHILS % (AUTO) 84.6 % (42.2-75.2); PLATELET COUNT (AUTO) 125 K/uL (140-450); RED BLOOD CELL COUNT(AUTO) 2.91 MIL/uL (4.20-6.10); RED CELL DISTRIBUTION WIDTH 14.6 % (11.6-13.7); WHITE BLOOD COUNT (AUTO) 4.5 K/uL (4.8-10.8)
[2024-02-17 06:57] LABS: GLUCOSE 30 mg/dL (74-106)
[2024-02-17] MEDS ORDERED: INSULIN LISPRO SLIDING SCALE 100 UNITS/ML VIAL SUBQ PRN (07:05)
[2024-02-17] MEDS: DEXTROSE 50% 50 ML SYR IVP ONE (07:17)
[2024-02-17] MEDS: BLOOD GLUCOSE MONITORING 1 DEV DEV FS SCH (07:40)
[2024-02-17] MEDS: DEXT 5% / NACL 0.9% 1,000 ML IV SCH (07:47)
[2024-02-17] MEDS: DEXTROSE 50% 50 ML SYR IVP PRN (13:05)
[2024-02-17] MEDS ORDERED: HYDROcodone/APAP 5/325 MG 1 TAB TAB PO PRN (20:35)
[2024-02-18] VITALS: BP 142/61; PULSE 75; PULSE 76; RESP 20; TEMP 98; O2SAT 96
[2024-02-18 04:00] VITALS: PULSE 77
[2024-02-18 08:00] VITALS: BP 122/80; PULSE 68; PULSE 96; RESP 18; RESP 20; TEMP 97.1; O2SAT 97; O2SAT 98
[2024-02-18 12:10] VITALS: BP 133/74; PULSE 84; RESP 20; TEMP 96.4; O2SAT 97
[2024-02-18 12:41] VITALS: PULSE 77
[2024-02-18 14:24] VITALS: BP 133/74; PULSE 77; RESP 20; TEMP 96.4
== END 2024-02-18 14:30 | disposition home or self-care (01) ==
LOC: MED 19:51 → MTU 02-17 04:50
PROVIDERS: ADMIT Hospitalist; ATTEND Hospitalist
DX: R55 Syncope and collapse (principal); E11.9 Type 2 diabetes mellitus without complications; I11.0 Hypertensive heart disease with heart failure; I50.9 Heart failure, unspecified; E66.01 Morbid (severe) obesity due to excess calories; N17.9 Acute kidney failure, unspecified; R42 Dizziness and giddiness; E78.00 Pure hypercholesterolemia, unspecified; Z79.84 Long term (current) use of oral hypoglycemic drugs; Z68.27 Body mass index [BMI] 27.0-27.9, adult; Z79.899 Other long term (current) drug therapy
CPT/HCPCS: 36415; 70450; 71045; 71250; 74176; 80048; 80076; 81003; 82948; 83605; 83880; 84484; 85025; 85610; 85730; 87040; 87081; 87086; 93005; 96361; 96365; 96366; 96367; 96375; 96376; 99285; C8929; G0378; J0692; J1815; J3370

== ENCOUNTER 2024-04-28 13:39 | Inpatient (IN) | payer OTHER ==
[~2024-04-28] VITALS: Ht 172.7 cm; Wt 91.6 kg
[2024-04-28] MEDS: VANCOMYCIN 1.25GM PREMIX 250 ML IV ONE (01:41)
[~2024-04-28 13:39] MED LIST changes: -ACET-10509 PO; -GLIP5TER PO; -MECL-303 PO; +TENA50TA PO
[2024-04-28 13:48] VITALS: BP 110/51; PULSE 95; RESP 16; TEMP 97.9; O2SAT 95
[2024-04-28] MEDS ORDERED: PIPERACILLIN/TAZOBACTAM 3.375 GM VIAL IV ONE (14:35)
[2024-04-28] MEDS: PIPERACILLIN/TAZOBACTAM 3.375 GM in DEXT 5% MINI-BAG PLUS 50 ML IV ONE (14:50)
[2024-04-28 14:54] LABS: BASOPHILS % (AUTO) 0.7 % (0.0-2.0); EOSINOPHILS # (AUTO) 0.3 K/uL (0-0.4); EOSINOPHILS % (AUTO) 5.5 % (0.0-4.0); HEMATOCRIT 27.8 % (36-52); HEMOGLOBIN 9.2 g/dL (12.0-18.0); LYMPHOCYTES # (AUTO) 0.7 K/uL (2.0-11.5); LYMPHOCYTES % (AUTO) 10.4 % (20.5-51.1); MEAN CORPUSCULAR HEMOGLOBIN 33 pg (27-31); MEAN CORPUSCULAR HGB CONC 33 g/dL (33-37); MEAN CORPUSCULAR VOLUME 98.5 fL (80-94); MONOCYTES # (AUTO) 0.5 K/uL (0.8-1.0); MONOCYTES % (AUTO) 7.4 % (1.7-9.3); NEUTROPHILS # (AUTO) 4.8 K/uL (1.8-7.7); PLATELET COUNT (AUTO) 124 K/uL (140-450); RED BLOOD CELL COUNT(AUTO) 2.82 MIL/uL (4.20-6.10); RED CELL DISTRIBUTION WIDTH 13.6 % (11.6-13.7); WHITE BLOOD COUNT (AUTO) 6.3 K/uL (4.8-10.8)
[2024-04-28] MEDS ORDERED: HYDR-133 (15:06)
[2024-04-28] MEDS ORDERED: PRED5SUS44 (15:06)
[2024-04-28] MEDS ORDERED: MECL-231 (15:06)
[2024-04-28 15:15] LABS: ANION GAP 11.4 (8-16); CALCIUM 8.4 mg/dL (8.5-10.1); CARBON DIOXIDE 30.7 mmol/L (21-32); CHLORIDE 103 mmol/L (98-107); CREATININE 1.1 mg/dL (0.6-1.3); GLUCOSE 118 mg/dL (74-106); POTASSIUM 4.1 mmol/L (3.5-5.1); SODIUM SERUM 141 mmol/L (136-145); UREA NITROGEN, BLOOD 16 mg/dL (7-18)
[2024-04-28 15:20] LABS: ALANINE AMINOTRANSFERASE 13 U/L (12-78); ALBUMIN 2.8 g/dL (3.4-5.0); ALKALINE PHOSPHATASE 103 U/L (50-136); ASPARTATE AMINOTRANSFERASE 13 U/L (15-37); BILIRUBIN,DIRECT 0.2 mg/dL (0.0-0.3); CREATINE KINASE, TOTAL 40 U/L (39-308); TOTAL BILIRUBIN 0.9 mg/dL (0.0-1.0); TOTAL PROTEIN, SERUM 6.2 g/dL (6.4-8.2)
[2024-04-28 15:23] LABS: LACTIC ACID 0.9 mmol/L (0.4-2.0)
[2024-04-28 15:24] LABS: INR 0.96 (0.8-1.2); PROTHROMBIN TIME 10.1 secs (10.8-13.4)
[2024-04-28 17:00] LABS: APPEARANCE,URINE CLEAR (CLEAR); BILIRUBIN,URINE NEGATIVE (NEGATIVE); BLOOD, URINE NEGATIVE (NEGATIVE); COLOR,URINE YELLOW (YELLOW); LEUKOCYTE ESTERASE ,URINE NEGATIVE (NEGATIVE); NITRITE, URINE NEGATIVE (NEGATIVE); PROTEIN,URINE NEGATIVE (NEGATIVE); UGLUCOSE NEGATIVE (NEGATIVE); UROBILINOGEN,URINE 0.2 EU/dL (0.2 - 1)
[2024-04-28] MEDS ORDERED: ACETAMINOPHEN 325 MG TAB PO PRN (21:30)
[2024-04-28] MEDS ORDERED: MORPHINE SULFATE 2 MG/ML SYR IVP PRN (21:30)
[2024-04-28] MEDS ORDERED: VANCOMYCIN PER PHARMACY MC PRN (21:40)
[2024-04-28 23:00] VITALS: BP 140/85; PULSE 81; PULSE 85; RESP 18; TEMP 98.1; O2SAT 95; O2SAT 96
[2024-04-28 23:45] VITALS: PULSE 73; RESP 19; O2SAT 98
[2024-04-28] MEDS: VANCOMYCIN 1,000 MG VIAL ONE (23:55)
[2024-04-29] VITALS (7 sets, daily range): BP systolic 99–147; BP diastolic 61–90; PULSE 61–80; RESP 16–20; TEMP 97–98.1; O2SAT 94–100
[2024-04-29] MEDS: PIPERACILLIN/TAZOBACTAM 3.375 GM VIAL IV ONE ×2 (00:08→06:12)
[2024-04-29] MEDS: PIPERACILLIN/TAZOBACTAM 3.375 GM in DEXTROSE 5% 50 ML IV SCH (00:10)
[2024-04-29 07:26] LABS: CALCIUM 8.3 mg/dL (8.5-10.1); CARBON DIOXIDE 33.8 mmol/L (21-32); CHLORIDE 103 mmol/L (98-107); CREATININE 1.1 mg/dL (0.6-1.3); GLUCOSE 109 mg/dL (74-106); POTASSIUM 3.8 mmol/L (3.5-5.1); SODIUM SERUM 140 mmol/L (136-145); UREA NITROGEN, BLOOD 16 mg/dL (7-18)
[2024-04-29 07:29] LABS: ALANINE AMINOTRANSFERASE 10 U/L (12-78); ALBUMIN 2.5 g/dL (3.4-5.0); ALKALINE PHOSPHATASE 95 U/L (50-136); ANION GAP 6.4 (8-16); ASPARTATE AMINOTRANSFERASE 8 U/L (15-37); CALCIUM 8.3 mg/dL (8.5-10.1); CARBON DIOXIDE 34.3 mmol/L (21-32); CHLORIDE 103 mmol/L (98-107); CREATININE 1.1 mg/dL (0.6-1.3); GLUCOSE 108 mg/dL (74-106); MAGNESIUM 1.5 mg/dL (1.8-2.4); POTASSIUM 3.7 mmol/L (3.5-5.1); SODIUM SERUM 140 mmol/L (136-145); TOTAL BILIRUBIN 0.8 mg/dL (0.0-1.0); TOTAL PROTEIN, SERUM 5.7 g/dL (6.4-8.2); UREA NITROGEN, BLOOD 15 mg/dL (7-18)
[2024-04-29] MEDS: ENOXAPARIN 40 MG/0.4 ML SYR SUBQ SCH (08:36)
[2024-04-29] MEDS ORDERED: POTASSIUM CHLORIDE 10 MEQ TABER PO PRN (08:55)
[2024-04-29] MEDS ORDERED: KETOROLAC 30 MG/ML VIAL IVP PRN (08:55)
[2024-04-29] MEDS ORDERED: ZOLPIDEM 5 MG TAB PO PRN (08:55)
[2024-04-29] MEDS ORDERED: ACETAMINOPHEN 325 MG TAB PO PRN (08:55)
[2024-04-29] MEDS ORDERED: DEXTROSE 50% 50 ML SYR IVP PRN (08:55)
[2024-04-29] MEDS ORDERED: guaiFENesin DM 200/20 MG-10 ML 10 ML UDC PO PRN (08:55)
[2024-04-29] MEDS: METOPROLOL 25 MG TAB PO SCH (10:30)
[2024-04-29] MEDS: PANTOPRAZOLE 40 MG TABEC PO SCH (10:31)
[2024-04-29] MEDS: LUBIPROSTONE 24 MCG CAPSULE PO SCH (10:31)
[2024-04-29] MEDS: cilostazoL 100 MG TAB PO SCH (10:31)
[2024-04-29] MEDS: MAGNESIUM OXIDE 400 MG TAB PO PRN (10:31)
[2024-04-29] MEDS: BLOOD GLUCOSE MONITORING 1 DEV DEV FS SCH (11:36)
[2024-04-29] MEDS: VANCOMYCIN 1.25GM PREMIX 250 ML IV SCH (20:17)
[2024-04-30] VITALS (7 sets, daily range): BP systolic 106–111; BP diastolic 59–67; PULSE 70–78; RESP 18; TEMP 97.4–97.8; O2SAT 91–98
[2024-04-30 06:56] LABS: BASOPHILS # (AUTO) 0.1 K/uL (0.00-0.22); EOSINOPHILS # (AUTO) 0.4 K/uL (0-0.4); HEMATOCRIT 26.3 % (36-52); HEMOGLOBIN 8.9 g/dL (12.0-18.0); LYMPHOCYTES # (AUTO) 0.9 K/uL (2.0-11.5); LYMPHOCYTES % (AUTO) 16.3 % (20.5-51.1); MEAN CORPUSCULAR HEMOGLOBIN 33 pg (27-31); MEAN CORPUSCULAR HGB CONC 34 g/dL (33-37); MONOCYTES # (AUTO) 0.5 K/uL (0.8-1.0); MONOCYTES % (AUTO) 9.2 % (1.7-9.3); NEUTROPHILS # (AUTO) 3.5 K/uL (1.8-7.7); NEUTROPHILS % (AUTO) 66.5 % (42.2-75.2); PLATELET COUNT (AUTO) 117 K/uL (140-450); RED BLOOD CELL COUNT(AUTO) 2.69 MIL/uL (4.20-6.10); RED CELL DISTRIBUTION WIDTH 13.2 % (11.6-13.7); WHITE BLOOD COUNT (AUTO) 5.2 K/uL (4.8-10.8)
[2024-04-30 07:38] LABS: ALANINE AMINOTRANSFERASE 10 U/L (12-78); ALBUMIN 2.4 g/dL (3.4-5.0); ALKALINE PHOSPHATASE 91 U/L (50-136); ANION GAP 8.6 (8-16); ASPARTATE AMINOTRANSFERASE 11 U/L (15-37); CALCIUM 8.2 mg/dL (8.5-10.1); CARBON DIOXIDE 30.3 mmol/L (21-32); CHLORIDE 104 mmol/L (98-107); CREATININE 1.3 mg/dL (0.6-1.3); GLUCOSE 129 mg/dL (74-106); POTASSIUM 3.9 mmol/L (3.5-5.1); SODIUM SERUM 139 mmol/L (136-145); TOTAL BILIRUBIN 0.6 mg/dL (0.0-1.0); TOTAL PROTEIN, SERUM 5.6 g/dL (6.4-8.2); UREA NITROGEN, BLOOD 19 mg/dL (7-18)
[2024-04-30] MEDS: FOLIC ACID 1 MG TAB PO SCH (08:55)
[2024-04-30] MEDS: CYANOCOBALAMIN 100 MCG TAB PO SCH (08:55)
[2024-04-30] MEDS: HYDROcodone/APAP 5/325 MG 1 TAB TAB PO PRN (08:57)
[2024-04-30] MEDS: INSULIN LISPRO SLIDING SCALE 100 UNITS/ML VIAL SUBQ PRN (11:11)
[2024-04-30] MEDS ORDERED: GAUZE TP SCH ×3 (12:05→13:00)
[2024-04-30] MEDS: GAUZE TP SCH (13:44)
[2024-04-30] MEDS: ATORVASTATIN 20 MG TAB PO SCH (17:22)
[2024-05-01] VITALS (8 sets, daily range): BP systolic 100–115; BP diastolic 49–58; PULSE 64–90; RESP 16–20; TEMP 97.4–98.9; O2SAT 92–98
[2024-05-01 07:12] LABS: BASOPHILS % (AUTO) 0.6 % (0.0-2.0); EOSINOPHILS # (AUTO) 0.4 K/uL (0-0.4); EOSINOPHILS % (AUTO) 6.8 % (0.0-4.0); HEMATOCRIT 25.6 % (36-52); HEMOGLOBIN 8.6 g/dL (12.0-18.0); LYMPHOCYTES # (AUTO) 0.8 K/uL (2.0-11.5); LYMPHOCYTES % (AUTO) 14.5 % (20.5-51.1); MEAN CORPUSCULAR HEMOGLOBIN 33 pg (27-31); MEAN CORPUSCULAR HGB CONC 34 g/dL (33-37); MEAN CORPUSCULAR VOLUME 98.1 fL (80-94); MONOCYTES # (AUTO) 0.5 K/uL (0.8-1.0); MONOCYTES % (AUTO) 9.8 % (1.7-9.3); NEUTROPHILS # (AUTO) 3.7 K/uL (1.8-7.7); NEUTROPHILS % (AUTO) 68.3 % (42.2-75.2); PLATELET COUNT (AUTO) 103 K/uL (140-450); RED BLOOD CELL COUNT(AUTO) 2.61 MIL/uL (4.20-6.10); RED CELL DISTRIBUTION WIDTH 13.1 % (11.6-13.7); WHITE BLOOD COUNT (AUTO) 5.5 K/uL (4.8-10.8)
[2024-05-01 07:45] LABS: ALANINE AMINOTRANSFERASE 14 U/L (12-78); ALBUMIN 2.4 g/dL (3.4-5.0); ALKALINE PHOSPHATASE 77 U/L (50-136); ANION GAP 9.6 (8-16); ASPARTATE AMINOTRANSFERASE 10 U/L (15-37); CALCIUM 8.7 mg/dL (8.5-10.1); CARBON DIOXIDE 30.1 mmol/L (21-32); CHLORIDE 103 mmol/L (98-107); CREATININE 1.4 mg/dL (0.6-1.3); GLUCOSE 85 mg/dL (74-106); POTASSIUM 3.7 mmol/L (3.5-5.1); SODIUM SERUM 139 mmol/L (136-145); TOTAL BILIRUBIN 0.5 mg/dL (0.0-1.0); TOTAL PROTEIN, SERUM 5.7 g/dL (6.4-8.2); UREA NITROGEN, BLOOD 17 mg/dL (7-18)
[2024-05-02 02:01] VITALS: O2SAT 94
[2024-05-02 04:00] VITALS: BP 109/61; PULSE 66; RESP 18; TEMP 97.5; O2SAT 97
[2024-05-02 06:47] LABS: BASOPHILS % (AUTO) 0.6 % (0.0-2.0); EOSINOPHILS # (AUTO) 0.3 K/uL (0-0.4); EOSINOPHILS % (AUTO) 6.8 % (0.0-4.0); HEMATOCRIT 24.6 % (36-52); HEMOGLOBIN 8.3 g/dL (12.0-18.0); LYMPHOCYTES # (AUTO) 0.9 K/uL (2.0-11.5); LYMPHOCYTES % (AUTO) 18.3 % (20.5-51.1); MEAN CORPUSCULAR HEMOGLOBIN 33 pg (27-31); MEAN CORPUSCULAR HGB CONC 34 g/dL (33-37); MEAN CORPUSCULAR VOLUME 97.4 fL (80-94); MONOCYTES # (AUTO) 0.5 K/uL (0.8-1.0); MONOCYTES % (AUTO) 9.9 % (1.7-9.3); NEUTROPHILS # (AUTO) 3.1 K/uL (1.8-7.7); NEUTROPHILS % (AUTO) 64.4 % (42.2-75.2); PLATELET COUNT (AUTO) 103 K/uL (140-450); RED BLOOD CELL COUNT(AUTO) 2.52 MIL/uL (4.20-6.10); WHITE BLOOD COUNT (AUTO) 4.8 K/uL (4.8-10.8)
[2024-05-02 07:19] LABS: ALANINE AMINOTRANSFERASE 11 U/L (12-78); ALBUMIN 2.4 g/dL (3.4-5.0); ALKALINE PHOSPHATASE 74 U/L (50-136); ANION GAP 11.2 (8-16); ASPARTATE AMINOTRANSFERASE 9 U/L (15-37); CALCIUM 8.2 mg/dL (8.5-10.1); CARBON DIOXIDE 27.5 mmol/L (21-32); CHLORIDE 104 mmol/L (98-107); CREATININE 1.3 mg/dL (0.6-1.3); GLUCOSE 134 mg/dL (74-106); POTASSIUM 3.7 mmol/L (3.5-5.1); SODIUM SERUM 139 mmol/L (136-145); TOTAL BILIRUBIN 0.4 mg/dL (0.0-1.0); TOTAL PROTEIN, SERUM 5.5 g/dL (6.4-8.2); UREA NITROGEN, BLOOD 22 mg/dL (7-18)
[2024-05-02 08:00] VITALS: BP 115/59; PULSE 80; RESP 18; TEMP 97.3; O2SAT 93
[2024-05-02] MEDS ORDERED: CLIN150C1 PO (10:32)
== END 2024-05-02 12:35 | disposition home or self-care (01) | DRG 602 ==
LOC: MED 13:39 → MMU 21:35 → MTU 22:43
PROVIDERS: ADMIT Student in an Organized Health Care Education/Training Program; ATTEND Student in an Organized Health Care Education/Training Program
DX: L03.116 Cellulitis of left lower limb (principal); E43 Unspecified severe protein-calorie malnutrition; D53.9 Nutritional anemia, unspecified; E11.9 Type 2 diabetes mellitus without complications; E78.5 Hyperlipidemia, unspecified; Z79.899 Other long term (current) drug therapy; Z68.30 Body mass index [BMI] 30.0-30.9, adult
CPT/HCPCS: 36415; 71045; 73590; 73700; 80048; 80053; 80076; 80202; 81003; 82550; 82948; 83605; 83735; 83880; 84100; 84484; 85025; 85610; 85651; 85730; 87040; 87070; 87075; 87081; 87086; 87186; 87205; 93005; 93971; 96374; 97110; 97116; 97163-GP; 97530; 99285; J1650; J1815; J2543; J3370; J3372; J7060; Q0092